=== PATIENT | male | born 1940 | race Hispanic/Latino ===

== ENCOUNTER 2020-01-31 18:15 | Emergency (ER) | payer MEDICARE ==
--- NOTE | 2020-01-31 19:22 | Event Note ---
ED Screening Note Date of service: 01/31/20 Time: 19:19 ED Screening Note: [id number] male presents today complaining of left hip pain status post falling today. pain with lifting left leg This initial assessment/diagnostic orders/clinical plan/treatment(s) is/are subject to change based on patients health status, clinical progression and re- assessment by fellow clinical providers in the ED. Further treatment and workup at subsequent clinical providers discretion. Patient/guardian urged not to elope from the ED as their condition may be serious if not clinically assessed and managed. Initial orders include: lt hip xr
--- NOTE | 2020-01-31 20:23 | XRay Report ---
Left hip-2 views INDICATION: pain s/p fall. COMPARISON: None. IMPRESSION: No acute osseous or soft tissue abnormality. 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 Signer Name: Radhames Ramires MD Signed: 01/31/2020 8:19 PM Workstation Name: [id number]
--- NOTE | 2020-01-31 21:46 | Emergency Department Report ---
ED Lower Extremity HPI - General Chief Complaint: Extremity Injury, Lower Stated Complaint: FELL/HIT HIP Time Seen by Provider: 01/31/20 21:43 Source: patient, family Mode of arrival: Ambulatory Limitations: No Limitations - History of Present Illness Initial Comments: Patient is a 80-year-old male that presents emergency room with complaints of fall and left hip pain. Patient states he slipped walking down the hallway today. Patient states he not been able to ambulate since. Patient states the pain is 10 out of 10. Pain states the pain is worse with movement and palpation and trying to walk. Patient states the pain is better with rest. Patient states the pain is a sharp pain. Patient states the pain is nonradiating. Patient denies chest pain. Patient denies shortness of breath. Patient denies loss of conscious. Patient denies other injuries. Patient denies any other pain. Patient denies hitting his head. Patient denies recent travel. Patient denies recent international travel. Patient denies exposure to the novel coronavirus. Patient denies sick contacts. Patient denies fever and chills. Patient denies cough. Patient denies diarrhea. Patient denies coming in contact with anybody with symptoms of the novel coronavirus. Complaint: hip injury -: Sudden Injury: Hip: Left, Pelvis: Left Type of Injury: blunt Place: home Severity: severe Severity scale (0 -10): 10 Improves With: rest Worsens With: weight bearing, movement, palpation Context: fall, direct blow Associated Symptoms: snap/pop sensation, unable to bear weight - Related Data Previous Rx's Medication Instructions Recorded Last Taken Type Acetaminophen/Codeine [Tylenol 1 tab PO Q4HR PRN #12 tablet 02/01/20 Unknown Rx /Codeine # 3 tab] Allergies Allergy/AdvReac Type Severity Reaction Status Date / Time No Known Allergies Allergy Unverified 01/31/20 18:22 ED Review of Systems ROS: Stated complaint: FELL/HIT HIP Other details as noted in HPI Constitutional: denies: chills, fever Eyes: denies: eye pain, eye discharge, vision change ENT: denies: ear pain, throat pain Respiratory: denies: cough, shortness of breath, wheezing Cardiovascular: denies: chest pain, palpitations Endocrine: no symptoms reported Gastrointestinal: denies: abdominal pain, nausea, diarrhea Genitourinary: denies: urgency, dysuria Musculoskeletal: denies: back pain, joint swelling, arthralgia Skin: denies: rash, lesions Neurological: denies: headache, weakness, paresthesias Psychiatric: denies: anxiety, depression Hematological/Lymphatic: denies: easy bleeding, easy bruising ED Past Medical Hx - Past Medical History Previous Medical History?: No - Surgical History Past Surgical History?: No - Family History Family history: no significant - Social History Smoking Status: Never Smoker Substance Use Type: None - Medications Home Medications: Home Medications Medication Instructions Recorded Confirmed Last Taken Type Acetaminophen/Codeine [Tylenol 1 tab PO Q4HR PRN #12 tablet 02/01/20 Unknown Rx /Codeine # 3 tab] ED Physical Exam - General Limitations: No Limitations General appearance: alert, in no apparent distress - Head Head exam: Present: atraumatic, normocephalic - Eye Eye exam: Present: normal appearance - ENT ENT exam: Present: mucous membranes moist - Neck Neck exam: Present: normal inspection - Respiratory Respiratory exam: Present: normal lung sounds bilaterally. Absent: respiratory distress - Cardiovascular Cardiovascular Exam: Present: regular rate, normal rhythm. Absent: systolic murmur, diastolic murmur, rubs, gallop - GI/Abdominal GI/Abdominal exam: Present: soft, normal bowel sounds - Rectal Rectal exam: Present: deferred - Extremities Exam Extremities exam: Present: normal inspection, full ROM (Except for with left lower extremity), tenderness (To left hip and pelvis) - Back Exam Back exam: Present: normal inspection - Neurological Exam Neurological exam: Present: alert, oriented X3 - Psychiatric Psychiatric exam: Present: normal affect, normal mood - Skin Skin exam: Present: warm, dry, intact, normal color. Absent: rash ED Course Vital Signs 01/31/20 01/31/20 01/31/20 18:22 21:41 21:45 Temperature 97.5 F L 97.9 F Pulse Rate 86 86 Respiratory 18 16 18 Rate Blood Pressure 147/87 Blood Pressure 141/97 [Right] O2 Sat by Pulse 96 99 99 Oximetry 02/01/20 01:30 Temperature Pulse Rate 76 Respiratory 17 Rate Blood Pressure Blood Pressure 168/91 [Right] O2 Sat by Pulse 98 Oximetry - Reevaluation(s) Reevaluation #1: I discussed all results and clinical findings with patient. I discussed plan of care with patient. Patient agrees with plan of care. Patient is stable for discharge. Patient will be discharged home. Patient given discharge instructions. Patient voiced understanding of discharge instructions. Son at bedside during entire discussion. 02/01/20 01:28 ED Lower Extremity MDM - Lab Data Result diagrams: 01/31/20 21:56 01/31/20 21:56 - Radiology Data Radiology results: report reviewed, image reviewed interpreted by me: No acute findings on left hip x-ray. CT PELVIS WITHOUT CONTRAST INDICATION / CLINICAL INFORMATION: Pt complains of pelvic and hip pain. Post-fall. TECHNIQUE: Axial CT images were obtained through the pelvis without contrast. All CT scans at this location are performed using CT dose reduction for ALARA by means of automated exposure control. COMPARISON: None available. FINDINGS: BONES: No fracture. 1 cm lytic lesion right iliac crest axial image 13 HIP JOINTS: No significant abnormality. SACROILIAC JOINTS: No significant abnormality. SOFT TISSUES: No significant abnormality. 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 ADDITIONAL FINDINGS: Moderate vascular calcifications throughout both iliac arteries. IMPRESSION: 1. No pelvic fracture 2. 1 cm lytic lesion right iliac bone. Please correlate clinically for possible myeloma. 3. Moderate degenerative changes lumbar spine. - Medical Decision Making Patient is a 80-year-old male that presents emergency room status post fall. Patient complains of left hip pain. Patient complaining of severe pain. Patient had an x-ray done which shows no acute findings. Patient then had a CT scan to confirm that there is no pelvic fracture or hip fracture. Patient CT was negative for acute findings. Patient CT was positive for a lytic lesion of the pelvis. Patient sent to see a faro dealer as an outpatient. Patient's labs were unremarkable. Patient's stable for discharge. Patient discharged home with a pain medication. Patient's discharge instructions given to the patient and the patient's son. - Differential Diagnosis Fall, hip pain, pelvic pain, contusion, sprain, strain, fracture Critical care attestation.: If time is entered above; I have spent that time in minutes in the direct care of this critically ill patient, excluding procedure time. ED Disposition Clinical Impression: Bony pelvic pain, Hip pain, left, Lesion of pelvic bone Fall Qualifiers: Encounter type: initial encounter Qualified Code(s): W19.XXXA - Unspecified fall, initial encounter Contusion, hip Qualifiers: Encounter type: initial encounter Laterality: left Qualified Code(s): S70.02XA - Contusion of left hip, initial encounter Disposition: TO HOME OR SELFCARE Is pt being admited?: No Does the pt Need Aspirin: No Condition: Stable Instructions: Fall Prevention for Older Adults (ED), Contusion in Adults (ED), Hip Sprain (ED), Fall Prevention (ED) Additional Instructions: Patient to follow-up with primary care in 2 to 3 days. Patient to follow-up with orthopedist in 2 to 3 days. Patient to follow-up with faro dealer in 2 to 3 days. Patient to rest. Patient to increase water. Patient to take Tylenol or ibuprofen as needed for pain. Patient to take meds as directed. Patient to return to the ER if condition worsens, changes or new symptoms arise. Prescriptions: Acetaminophen/Codeine [Tylenol /Codeine # 3 tab] 1 tab PO Q4HR PRN #12 tablet PRN Reason: Pain Referrals: PRIMARY MD KAI [Primary Care Provider] - 2-3 Days VALERIANO LOBO MD [Staff Physician] - 2-3 Days FUENTES KILPATRICK MD [Staff Physician] - 2-3 Days Time of Disposition: 01:28
[2020-01-31 22:28] LABS: Mean Corpuscular HGB Conc 36 % (32-34); Mean Corpuscular Volume 89 fl (84-94); Platelet Count 158 K/mm3 (140-440); Red Blood Count 4.36 M/mm3 (3.65-5.03); Red Cell Distribution Width 13.8 % (13.2-15.2)
[2020-01-31 22:30] LABS: Hematocrit 38.6 % (35.5-45.6)
[2020-01-31 22:42] LABS: BUN/Creatinine Ratio 17; Blood Urea Nitrogen 12 mg/dL (9-20); Calcium 8.8 mg/dL (8.4-10.2); Hemolysis Index 22
--- NOTE | 2020-02-01 01:11 | Cat Scan Report ---
CT PELVIS WITHOUT CONTRAST INDICATION / CLINICAL INFORMATION: Pt complains of pelvic and hip pain. Post-fall. TECHNIQUE: Axial CT images were obtained through the pelvis without contrast. All CT scans at this location are performed using CT dose reduction for ALARA by means of automated exposure control. COMPARISON: None available. FINDINGS: BONES: No fracture. 1 cm lytic lesion right iliac crest axial image 13 HIP JOINTS: No significant abnormality. SACROILIAC JOINTS: No significant abnormality. SOFT TISSUES: No significant abnormality. 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 ADDITIONAL FINDINGS: Moderate vascular calcifications throughout both iliac arteries. IMPRESSION: 1. No pelvic fracture 2. 1 cm lytic lesion right iliac bone. Please correlate clinically for possible myeloma. 3. Moderate degenerative changes lumbar spine. Signer Name: Isaias Stroud MD Signed: 02/01/2020 1:06 AM Workstation Name: [id number]
[2020-02-01 01:31] VITALS: BP 168/91
== END 2020-02-01 02:00 | disposition home or self-care (01) ==
LOC: ED 18:15
DX: S70.02XA Contusion of left hip, initial encounter (principal); M89.8X8 Other specified disorders of bone, other site; W19.XXXA Unspecified fall, initial encounter; Y93.89 Activity, other specified; Y92.89 Other specified places as the place of occurrence of the external cause; Y99.8 Other external cause status
CPT/HCPCS: 36415; 72192; 80048; 85027

== ENCOUNTER 2020-02-11 09:34 | Emergency (ER) | payer MEDICARE ==
[2020-02-11 09:49] VITALS: BP 130/88
--- NOTE | 2020-02-11 10:49 | Emergency Department Report ---
Chief Complaint: Extremity Injury, Lower Stated Complaint: HIP PAIN Time Seen by Provider: 02/11/20 10:35 - HPI History of Present Illness: 80-year-old male patient presents with complaints of continued left hip pain and stiffness. Patient was seen here 01/31/2020 with the same complaint of hip pain that occurred after a fall. Patient states since he has also been seen at [facility] emergency department. Patient had x-rays and CT scans of the hip both here and at [place]. CT scan here showed a lytic lesion that may resemble myeloma. Patient states pain medications including hydrocodone, Tylenol 3, and Flexeril are not helping with his pain. He reports his pain seems to be worse in the morning and gets better throughout the day. I spoke with patient's son Jadon, who states patient has full mobility of the left hip and normally ambulates with a walker. He denies any loss of bladder/bowel control, back injuries, or numbness/tingling/weakness in his limbs. Patient states he is here because his pain is uncontrolled. - Exam Vital Signs: Vital Signs 02/11/20 09:44 Temperature 97.6 F Pulse Rate 89 Respiratory 16 Rate Blood Pressure 130/88 O2 Sat by Pulse 98 Oximetry MSE screening note: Focused history and physical exam performed. Due to findings the following was ordered: ED Medical Decision Making - Medical Decision Making Please see HPI. Spoke with patient's son Jadon and patient about the importance of following up with a handle turner oncologist for further evaluation and tr eatment of the lytic lesion noted on the CT scan. Strict return precautions were discussed in detail with patient who verbalized understanding. Prescription for meloxicam given. ED Disposition for MSE Clinical Impression: Left hip pain, Abnormal CT scan, pelvis Disposition: [id number] MED SCREENING EXAM-LEFT Is pt being admited?: No Condition: Stable ED Review of Systems ROS: Stated complaint: HIP PAIN Other details as noted in HPI Constitutional: denies: diaphoresis, fever, weakness Respiratory: denies: cough, shortness of breath Cardiovascular: denies: chest pain Gastrointestinal: denies: abdominal pain, nausea, vomiting, hematochezia Genitourinary: denies: frequency Musculoskeletal: arthralgia. denies: joint swelling Skin: denies: rash, lesions Neurological: denies: headache, numbness, paresthesias, abnormal gait ED Physical Exam - General Limitations: No Limitations General appearance: alert, in no apparent distress - Head Head exam: Present: atraumatic, normocephalic - Neck Neck exam: Present: normal inspection, full ROM - Respiratory Respiratory exam: Absent: normal lung sounds bilaterally, respiratory distress - Cardiovascular Cardiovascular Exam: Present: regular rate, normal rhythm. Absent: systolic murmur, diastolic murmur, rubs, gallop - GI/Abdominal GI/Abdominal exam: Present: soft. Absent: distended (Left hip flexion is mildly limited secondary to pain, there is full range of motion of the right hip, there is normal sensation bilaterally in legs and normal strength. No lower back pain or tenderness noted on exam) - Neurological Exam Neurological exam: Present: alert, oriented X3 - Psychiatric Psychiatric exam: Present: normal affect, normal mood - Skin Skin exam: Present: warm, dry, intact, normal color. Absent: rash, cyanosis, erythema
== END 2020-02-11 11:17 | disposition left against medical advice (07) ==
LOC: ED 09:34
DX: M25.552 Pain in left hip (principal); Z53.21 Procedure and treatment not carried out due to patient leaving prior to being seen by health care provider

== ENCOUNTER 2020-02-13 16:44 | Emergency (ER) | payer MEDICARE ==
--- NOTE | 2020-02-13 17:23 | Emergency Department Report ---
ED General Adult HPI - General Chief complaint: Fall Stated complaint: LT HIP PAIN PUI?: No Time Seen by Provider: 02/13/20 16:46 Source: EMS Mode of arrival: Stretcher Limitations: No Limitations - History of Present Illness Initial comments: Patient is a 80-year-old male that presents emergency room with complaints of hip pain. Patient states he fell on January 31, 2020. Patient was seen the day of the fall. Patient's initial visit to the ER patient had a pelvis CT done which was negative for acute findings. Patient also came back on 02/11/2020 to be seen again and had a x-ray done of the hip and pelvis and it was negative for acute fracture. Patient has not seen the orthopedist or his primary care since his visits to the emergency room. Patient states that he needs a refill of the medication that was given to him on 01/31/2020. Patient was prescribed Tylenol 3 and patient states that he was given meloxicam at his second visit and it did not help. Patient would like a refill of the Tylenol 3. Patient states the pain is a 10 out of 10. Patient states that the pain is worse with movement and better with rest. Patient denies another fall. Patient denies new injury. Patient has not seen any other specialist or his primary care after his initial ER visits. Patient denies chest pain or shortness of breath. Patient denies any other complaints. Patient denies recent travel. Patient denies recent international travel. Patient denies exposure to the novel coronavirus. Patient denies sick contacts. Patient denies fever and chills. Patient denies cough. Patient denies diarrhea. Patient denies coming in contact with anybody with symptoms of the novel coronavirus. I discussed the patient's situation with the patient's son over the phone. The son states that the patient does not want to go to any follow-up with me she just wants to keep coming back to the emergency room because it is easier on him. -: Sudden Location: left, lower extremity Severity scale (0 -10): 10 Consistency: constant - Related Data Previous Rx's Medication Instructions Recorded Last Taken Type Meloxicam [Mobic] 15 mg PO 15 PRN #15 tablet 02/11/20 Unknown Rx Acetaminophen/Codeine [Tylenol 1 tab PO Q4HR PRN #10 tablet 02/13/20 Unknown Rx /Codeine # 3 tab] Allergies Allergy/AdvReac Type Severity Reaction Status Date / Time No Known Allergies Allergy Unverified 01/31/20 18:22 ED Review of Systems ROS: Stated complaint: LT HIP PAIN Other details as noted in HPI Constitutional: denies: chills, fever Eyes: denies: eye pain, eye discharge, vision change ENT: denies: ear pain, throat pain Respiratory: denies: cough, shortness of breath, wheezing Cardiovascular: denies: chest pain, palpitations Endocrine: no symptoms reported Gastrointestinal: denies: abdominal pain, nausea, diarrhea Genitourinary: denies: urgency, dysuria Musculoskeletal: denies: back pain, joint swelling, arthralgia Skin: denies: rash, lesions Neurological: denies: headache, weakness, paresthesias Psychiatric: depression. denies: anxiety, auditory hallucinations, visual hallucinations, homicidal thoughts, suicidal thoughts Hematological/Lymphatic: denies: easy bleeding, easy bruising ED Past Medical Hx - Past Medical History Previous Medical History?: Yes Hx Hypertension: Yes - Surgical History Past Surgical History?: No - Family History Family history: no significant - Social History Smoking Status: Never Smoker Substance Use Type: None - Medications Home Medications: Home Medications Medication Instructions Recorded Confirmed Last Taken Type Meloxicam [Mobic] 15 mg PO 15 PRN #15 tablet 02/11/20 Unknown Rx Acetaminophen/Codeine [Tylenol 1 tab PO Q4HR PRN #10 tablet 02/13/20 Unknown Rx /Codeine # 3 tab] ED Physical Exam - General Limitations: No Limitations General appearance: alert, in no apparent distress - Head Head exam: Present: atraumatic, normocephalic - Eye Eye exam: Present: normal appearance - ENT ENT exam: Present: mucous membranes moist - Neck Neck exam: Present: normal inspection - Respiratory Respiratory exam: Present: normal lung sounds bilaterally. Absent: respiratory distress - Cardiovascular Cardiovascular Exam: Present: regular rate, normal rhythm. Absent: systolic murmur, diastolic murmur, rubs, gallop - GI/Abdominal GI/Abdominal exam: Present: soft, normal bowel sounds - Rectal Rectal exam: Present: deferred - Extremities Exam Extremities exam: Present: normal inspection, full ROM (Except for with left hip.), tenderness (Tenderness over the left hip.) - Back Exam Back exam: Present: normal inspection - Neurological Exam Neurological exam: Present: alert, oriented X3 - Psychiatric Psychiatric exam: Present: normal affect, normal mood - Skin Skin exam: Present: warm, dry, intact, normal color. Absent: rash ED Course Vital Signs 02/13/20 17:40 Temperature 98 F Pulse Rate 87 Respiratory 16 Rate Blood Pressure 176/100 [Left] O2 Sat by Pulse 100 Oximetry - Reevaluation(s) Reevaluation #1: Initial evaluation done. I spoke with the son about the plan of care. Patient does not require any further emergency medical services at this time. Son agrees with plan of care. I discussed all clinical findings with patient. I discussed plan of care with patient. Patient agrees with plan of care. Patient is stable for discharge. Patient will be discharged home. Patient given discharge instructions. Patient voiced understanding of discharge instructions. 02/13/20 17:35 ED Medical Decision Making - Medical Decision Making Patient is a 80-year-old male that presents emergency room with complaints of left hip pain after a fall 2 weeks ago. Patient has been evaluated twice in the ER and has been discharged both times. Patient really turned to the ER for a refill of his Tylenol 3. Patient has not followed up with any of the specialist or his primary care since his 2 ER visits here. I discussed the situation and the plan of care with the patient's son and the patient's son agrees with discharge. Patient encouraged to follow-up with the specialist for further evaluation and treatment of his hip pain. Patient will be given a refill of the Tylenol 3 until the patient can see the orthopedist within the next 2-3 days. Patient does not require any further emergency medical service. Patient had a medical clearing exam and is cleared for discharge and to follow-up as an outpatient. - Differential Diagnosis Hip contusion. Fall Critical care attestation.: If time is entered above; I have spent that time in minutes in the direct care of this critically ill patient, excluding procedure time. ED Disposition Clinical Impression: Bony pelvic pain, Hip pain, left Contusion, hip Qualifiers: Encounter type: initial encounter Laterality: left Qualified Code(s): S70.02XA - Contusion of left hip, initial encounter Disposition: MED SCREENING EXAM-LEFT Is pt being admited?: No Does the pt Need Aspirin: No Condition: Stable Instructions: Arthralgia (ED) Additional Instructions: Patient to follow-up with primary care in 2 to 3 days. Patient to follow-up with orthopedist in 2 to 3 days. Patient to rest. Patient to increase water. Patient to avoid strenuous exercise or heavy lifting until cleared by orthopedist. Patient to take Tylenol or ibuprofen as needed for pain. Patient to take meds as directed. Patient to return to the ER if condition worsens, changes or new symptoms arise. Prescriptions: Acetaminophen/Codeine [Tylenol /Codeine # 3 tab] 1 tab PO Q4HR PRN #10 tablet PRN Reason: Pain Referrals: PRIMARY CARE, [Primary Care Provider] - 2-3 Days MALACHI DUENAS MD [Staff Physician] - 2-3 Days Time of Disposition: 17:37
[2020-02-13 17:41] VITALS: BP 176/100
== END 2020-02-13 19:16 | disposition left against medical advice (07) ==
LOC: ED 16:44
DX: M25.552 Pain in left hip (principal); R10.2 Pelvic and perineal pain; Z79.899 Other long term (current) drug therapy; Z53.21 Procedure and treatment not carried out due to patient leaving prior to being seen by health care provider; W19.XXXA Unspecified fall, initial encounter; Y93.89 Activity, other specified; Y92.89 Other specified places as the place of occurrence of the external cause; Y99.8 Other external cause status

== ENCOUNTER 2020-02-18 10:21 | Emergency (ER) | payer MEDICARE ==
[2020-02-18 11:00] VITALS: BP 121/82
--- NOTE | 2020-02-18 11:26 | Event Note ---
ED Screening Note ED Screening Note: hematuria for 2-3 days no dysuria no abd pain no n/v/d hip pain that has been ongoing and evaluated sons states he has been having SI pt denies any SI/HI This initial assessment/diagnostic orders/clinical plan/treatment(s) is/are subject to change based on patients health status, clinical progression and re- assessment by fellow clinical providers in the ED. Further treatment and workup at subsequent clinical providers discretion. Patient/guardian urged not to elope from the ED as their condition may be serious if not clinically assessed and managed. Initial orders include: MAIN eval labs, urine
[2020-02-18 13:43] LABS: Basophils # (Auto) 0.1 K/mm3 (0.0-0.1); Basophils % (Auto) 0.7 % (0.0-1.8); Eosinophils % (Auto) 0.1 % (0.0-4.3); Hematocrit 41.3 % (35.5-45.6); Hemoglobin 14.3 gm/dl (11.8-15.2); Lymphocytes # (Auto) 0.9 K/mm3 (1.2-5.4); Lymphocytes % (Auto) 7.6 % (13.4-35.0); Mean Corpuscular HGB Conc 35 % (32-34); Mean Corpuscular Volume 87 fl (84-94); Monocytes # (Auto) 0.8 K/mm3 (0.0-0.8); Monocytes % (Auto) 6.8 % (0.0-7.3); Platelet Count 270 K/mm3 (140-440); Red Blood Count 4.77 M/mm3 (3.65-5.03); Red Cell Distribution Width 13.6 % (13.2-15.2)
[2020-02-18 14:00] LABS: Alanine Aminotransferase 16 units/L (7-56); BUN/Creatinine Ratio 24; Blood Urea Nitrogen 17 mg/dL (9-20); Calcium 9.2 mg/dL (8.4-10.2); Hemolysis Index 11
--- NOTE | 2020-02-18 15:22 | Emergency Department Report ---
ED General Adult HPI - General Chief complaint: Psych Stated complaint: blood in urine/threatening suicide/leg pain Time Seen by Provider: 02/18/20 11:21 Source: patient, family Mode of arrival: Wheelchair Limitations: Other - History of Present Illness Initial comments: Patient presents to the emergency department via EMS with a chief complaint of depression. 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 The patient states that today he had an argument with his son which she described was pretty aggressive and he told his son he wanted to kill himself as well as kill his son. Patient states he said it just because he was upset. Patient complains of left leg pain that has been chronic since 1980 when he had rods placed. Patient also complains of some blood in his urine and flank pain. -: Sudden Severity scale (0 -10): 0 Consistency: constant Improves with: none Worsens with: none Associated Symptoms: denies other symptoms Treatments Prior to Arrival: none - Related Data Previous Rx's Medication Instructions Recorded Last Taken Type Meloxicam [Mobic] 15 mg PO 15 PRN #15 tablet 02/11/20 Unknown Rx Acetaminophen/Codeine [Tylenol 1 tab PO Q4HR PRN #10 tablet 02/13/20 Unknown Rx /Codeine # 3 tab] cephALEXin [Keflex] 500 mg PO Q12HR #14 cap 02/18/20 Unknown Rx Allergies Allergy/AdvReac Type Severity Reaction Status Date / Time No Known Allergies Allergy Verified 02/18/20 10:53 ED Review of Systems ROS: Stated complaint: blood in urine/threatening suicide/leg pain Other details as noted in HPI Constitutional: denies: chills, fever Eyes: denies: eye pain, eye discharge, vision change ENT: denies: ear pain, throat pain Respiratory: denies: cough, shortness of breath, wheezing Cardiovascular: denies: chest pain, palpitations Endocrine: no symptoms reported Gastrointestinal: denies: abdominal pain, nausea, diarrhea Genitourinary: denies: urgency, dysuria Musculoskeletal: denies: back pain, joint swelling, arthralgia Skin: denies: rash, lesions Neurological: denies: headache, weakness, paresthesias Psychiatric: homicidal thoughts, suicidal thoughts. denies: anxiety, depression, auditory hallucinations, visual hallucinations Hematological/Lymphatic: denies: easy bleeding, easy bruising ED Past Medical Hx - Past Medical History Hx Hypertension: Yes Additional medical history: poor historian - Social History Smoking Status: Never Smoker Substance Use Type: None - Medications Home Medications: Home Medications Medication Instructions Recorded Confirmed Last Taken Type Meloxicam [Mobic] 15 mg PO 15 PRN #15 tablet 02/11/20 Unknown Rx Acetaminophen/Codeine [Tylenol 1 tab PO Q4HR PRN #10 tablet 02/13/20 Unknown Rx /Codeine # 3 tab] cephALEXin [Keflex] 500 mg PO Q12HR #14 cap 02/18/20 Unknown Rx ED Physical Exam - General Limitations: Other General appearance: alert, in no apparent distress - Head Head exam: Present: atraumatic, normocephalic - Eye Eye exam: Present: normal appearance, PERRL, EOMI - ENT ENT exam: Present: mucous membranes moist - Neck Neck exam: Present: normal inspection - Respiratory Respiratory exam: Present: normal lung sounds bilaterally. Absent: respiratory distress - Cardiovascular Cardiovascular Exam: Present: regular rate, normal rhythm. Absent: systolic murmur, diastolic murmur, rubs, gallop - GI/Abdominal GI/Abdominal exam: Present: soft, normal bowel sounds. Absent: distended, tenderness - Rectal Rectal exam: Present: deferred - Extremities Exam Extremities exam: Present: normal inspection - Back Exam Back exam: Present: normal inspection - Neurological Exam Neurological exam: Present: alert, oriented X3, CN II-XII intact. Absent: motor sensory deficit - Psychiatric Psychiatric exam: Present: normal affect, normal mood - Skin Skin exam: Present: warm, dry, intact, normal color. Absent: rash ED Course Vital Signs 02/18/20 02/18/20 10:59 18:36 Temperature 98.2 F Pulse Rate 80 Respiratory 20 18 Rate Blood Pressure 121/82 O2 Sat by Pulse 97 100 Oximetry ED Medical Decision Making - Lab Data Result diagrams: 02/18/20 13:18 02/18/20 13:18 Lab Results 02/18/20 02/18/20 02/18/20 Range/Units 13:18 13:18 13:18 WBC 11.4 H (4.5-11.0) K/mm3 RBC 4.77 (3.65-5.03) M/mm3 Hgb 14.3 (11.8-15.2) gm/dl Hct 41.3 (35.5-45.6) % MCV 87 (84-94) fl MCH 30 (28-32) pg MCHC 35 H (32-34) % RDW 13.6 (13.2-15.2) % Plt Count 270 (140-440) K/mm3 Lymph % (Auto) 7.6 L (13.4-35.0) % [place] % (Auto) 6.8 (0.0-7.3) % Eos % (Auto) 0.1 (0.0-4.3) % Baso % (Auto) 0.7 (0.0-1.8) % Lymph # 0.9 L (1.2-5.4) K/mm3 [place] # 0.8 (0.0-0.8) K/mm3 Eos # 0.0 (0.0-0.4) K/mm3 Baso # 0.1 (0.0-0.1) K/mm3 Seg Neutrophils % 84.8 H (40.0-70.0) % Seg Neutrophils # 9.7 H (1.8-7.7) K/mm3 Sodium 142 (137-145) mmol/L Potassium 3.3 L (3.6-5.0) mmol/L Chloride 99.9 (98-107) mmol/L Carbon Dioxide 26 (22-30) mmol/L Anion Gap 19 mmol/L BUN 17 (9-20) mg/dL Creatinine 0.7 L (0.8-1.5) mg/dL Estimated GFR > 60 ml/min BUN/Creatinine Ratio 24 % Glucose 176 H (75-100) mg/dL Calcium 9.2 (8.4-10.2) mg/dL Total Bilirubin 1.90 H (0.1-1.2) mg/dL AST 35 (5-40) units/L ALT 16 (7-56) units/L Alkaline Phosphatase 85 (35-129) units/L Total Protein 6.5 (6.3-8.2) g/dL Albumin 4.0 (3.9-5) g/dL Albumin/Globulin Ratio 1.6 % Salicylates < 0.3 L (2.8-20.0) mg/dL Acetaminophen (10.0-30.0) ug/mL Plasma/Serum Alcohol (0-0.07) % 02/18/20 02/18/20 Range/Units 13:18 13:18 WBC (4.5-11.0) K/mm3 RBC (3.65-5.03) M/mm3 Hgb (11.8-15.2) gm/dl Hct (35.5-45.6) % MCV (84-94) fl MCH (28-32) pg MCHC (32-34) % RDW (13.2-15.2) % Plt Count (140-440) K/mm3 Lymph % (Auto) (13.4-35.0) % [place] % (Auto) (0.0-7.3) % Eos % (Auto) (0.0-4.3) % Baso % (Auto) (0.0-1.8) % Lymph # (1.2-5.4) K/mm3 [place] # (0.0-0.8) K/mm3 Eos # (0.0-0.4) K/mm3 Baso # (0.0-0.1) K/mm3 Seg Neutrophils % (40.0-70.0) % Seg Neutrophils # (1.8-7.7) K/mm3 Sodium (137-145) mmol/L Potassium (3.6-5.0) mmol/L Chloride (98-107) mmol/L Carbon Dioxide (22-30) mmol/L Anion Gap mmol/L BUN (9-20) mg/dL Creatinine (0.8-1.5) mg/dL Estimated GFR ml/min BUN/Creatinine Ratio % Glucose (75-100) mg/dL Calcium (8.4-10.2) mg/dL Total Bilirubin (0.1-1.2) mg/dL AST (5-40) units/L ALT (7-56) units/L Alkaline Phosphatase (35-129) units/L Total Protein (6.3-8.2) g/dL Albumin (3.9-5) g/dL Albumin/Globulin Ratio % Salicylates (2.8-20.0) mg/dL Acetaminophen < 5.0 L (10.0-30.0) ug/mL Plasma/Serum Alcohol < 0.01 (0-0.07) % - Medical Decision Making The patient declined CT of the abdomen multiple times stating he did not need it Patient evaluated by the mental health and deemed not a harm to self or others. Critical care attestation.: If time is entered above; I have spent that time in minutes in the direct care of this critically ill patient, excluding procedure time. ED Disposition Clinical Impression: Hematuria Disposition: DC-01 TO HOME OR SELFCARE Is pt being admited?: No Does the pt Need Aspirin: No Condition: Stable Instructions: Acute Hematuria (ED) Additional Instructions: RETURN IF WORSE Prescriptions: cephALEXin [Keflex] 500 mg PO Q12HR #14 cap Referrals: PRIMARY CAREMD [Primary Care Provider] - 3-5 Days ADRIA ESTRADA MD [Staff Physician] - 3-5 Days [facility] [Provider Group] - 3-5 Days [facility] [Provider Group] - 3-5 Days [facility] [Outside] - 3-5 Days Time of Disposition: 19:08
[2020-02-18] MEDS ORDERED: MORPHINE 4 MG/1 ML INJ IM ONE (19:27)
[2020-02-18] MEDS ORDERED: ONDANSETRON 4 MG/2 ML INJ IM ONE (19:27)
[2020-02-18 19:28] LABS: Amphetamine Screen,Urine PRESUMPTIVE NEGATIVE; Benzodiazepines Screen,Urine PRESUMPTIVE NEGATIVE; Cannabinoid Screen,Urine PRESUMPTIVE NEGATIVE; Cocaine Screen,Urine PRESUMPTIVE NEGATIVE; Methadone Screen,Urine PRESUMPTIVE NEGATIVE; Opiate Screen,Urine PRESUMPTIVE POSITIVE
[2020-02-18] MEDS ORDERED: MORPHINE 2 MG/1 ML INJ ONE (19:28)
[2020-02-18 19:38] LABS: Bilirubin,Urine NEG (Negative); Blood,Urine LG (Negative); Color,Urine Amber (Yellow); Mucus,Urine 1+ /HPF
[2020-02-18 19:40] LABS: RBC,Urine > 182.0 /HPF (0.0-6.0)
== END 2020-02-18 20:02 | disposition home or self-care (01) ==
LOC: ED 10:21
DX: R31.9 Hematuria, unspecified (principal); R10.9 Unspecified abdominal pain; F32.9 Major depressive disorder, single episode, unspecified; I10 Essential (primary) hypertension; Z79.899 Other long term (current) drug therapy
CPT/HCPCS: 36415; 80053; 80307; 81001; 85025; 96372; 99284; J2270; 80320; G0480

== ENCOUNTER 2020-02-20 09:38 | Inpatient (IN) | payer MEDICARE ==
[2020-02-20] MEDS ORDERED: ZIPRASIDONE MESYLATE 20 MG VIAL IM PRN (09:57)
--- NOTE | 2020-02-20 13:29 | Consultation ---
History of Present Illness - Reason for Consult Consult date: 02/20/20 HTN Requesting physician: JOSE CURRAN - History of Present Illness 80 YO Male with HTN, Debility, Dementia admitted to [facility] for Psychiatric stabilization. Consult placed by Dr. Curran for medical management. Patient seen and evaluated in his room. Patient appears comfortable. Patient has cognitive slowing. Patient is bedbound. No reported nursing events. Past History Past Medical History: hypertension Past Surgical History: No surgical history, Other (Reviewed) Social history: . denies: smoking, alcohol abuse Family history: hypertension Medications and Allergies Allergies Allergy/AdvReac Type Severity Reaction Status Date / Time No Known Allergies Allergy Verified 02/18/20 10:53 Home Medications Medication Instructions Recorded Confirmed Last Taken Type cephALEXin [Keflex] 500 mg PO Q12HR #14 cap 02/18/20 02/20/20 Unknown Rx Potassium Chloride 20 meq PO BID #30 packet 02/20/20 02/20/20 Unknown Rx Active Meds: Active Medications Melatonin (Melatonin) 5 mg PO QHS PRN PRN Reason: Sleep Trazodone HCl (Desyrel) 50 mg PO QHS CONSTANCE Ziprasidone (Geodon) 10 mg IM Q6H PRN PRN Reason: Agitation Review of Systems Constitutional: no weight loss, no weight gain, no fever Ears, nose, mouth and throat: no ear pain, no tinnitis, no decreased hearing Cardiovascular: no chest pain, no rapid/irregular heart beat Respiratory: no cough, no excessive sputum, no hemoptysis Gastrointestinal: no nausea, no diarrhea, no change in bowel habits Genitourinary Male: no hematuria, no discharge, no urinary frequency Rectal: no incontinence, no bleeding Musculoskeletal: no neck stiffness Integumentary: no pruritis, no jaundice Neurological: no tingling, no lack of coordination Psychiatric: suicidal ideation, no change in sleep habits, no hypersomnia, no change in libido, no disorientation Hematologic/Lymphatic: no easy bruising, no easy bleeding, no lymphedema Allergic/Immunologic: no wheezing, no persistent infections Exam - Constitutional General appearance: Present: no acute distress - EENT Eyes: Present: PERRL ENT: hearing intact, clear oral mucosa - Neck Neck: Present: supple, normal ROM - Respiratory Respiratory effort: normal Respiratory: bilateral: CTA - Cardiovascular Heart Sounds: Present: S1 & S2. Absent: rub, click - Extremities Extremities: pulses symmetrical, No edema Peripheral Pulses: within normal limits - Abdominal General gastrointestinal: Present: soft, non-tender, non-distended, normal bowel sounds Male genitourinary: Present: normal - Integumentary Integumentary: Present: clear, warm, dry - Musculoskeletal Musculoskeletal: generalized weakness - Psychiatric Psychiatric: cooperative - Neurologic Neurologic: CNII-XII intact, moves all extremities, no gait normal (Extremity: With) Assessment and Plan - Patient Problems (1) HTN (hypertension) Current Visit: Yes Status: Acute Qualifiers: Hypertension type: essential hypertension Qualified Code(s): I10 - Essential (primary) hypertension Plan to address problem: Continue medical management, monitor blood pressure every shift
[2020-02-20] MEDS: traZODone 50 MG TAB PO SCH (21:40)
[2020-02-21 09:56] LABS: Basophils % (Auto) 0.6 % (0.0-1.8); Eosinophils % (Auto) 0.4 % (0.0-4.3); Hematocrit 38.1 % (35.5-45.6); Hemoglobin 13.9 gm/dl (11.8-15.2); Lymphocytes # (Auto) 1.3 K/mm3 (1.2-5.4); Lymphocytes % (Auto) 18.8 % (13.4-35.0); Mean Corpuscular HGB Conc 37 % (32-34); Mean Corpuscular Volume 87 fl (84-94); Monocytes # (Auto) 0.5 K/mm3 (0.0-0.8); Monocytes % (Auto) 7.1 % (0.0-7.3); Platelet Count 239 K/mm3 (140-440); Red Cell Distribution Width 13.9 % (13.2-15.2)
--- NOTE | 2020-02-21 09:58 | History and Physical Report ---
GP History & Physical - History of Present Illness Date of admission: 02/20/20 Date of Examination: 02/21/20 Reason for Admission: Danger to self, Severe anxiety/depression History of Present Illness: Lizzy Lane is a 80y/o male patient who was admitted to the [facility] for depression and suicidal thoughts, per admission note. I attempted to interview the patient this morning, he is lying in bed asleep. He arouses easily but is reluctant to speak and drifts back to sleep. He is confused. He states, "I'm sleeping." His speech is difficult to comprehend. The patient could not be engaged to complete the interview. Spoke withe the patient's son, Jadon at [phone]. Jadon says the patient has been depressed, confused and hasn't taken any of his medications in three months. He says the patient's coumadin was decreased to 4mg in June by a hospital in [place] while visiting there. He says the patient hasn't seen his regular telephone advice nurse in a year and no other doctor since last June. The patient was on coumadin for Afib. Jadon says the patient stopped taking all medications because the patient stated, "they made him confused and crazy." He says after the patient stopped taking the meds he was "better, clear and a normal person." He says the patient was ambulating up to two weeks ago. PAST PSYCHIATRIC HISTORY: Unable to assess PAST MEDICAL HISTORY: None reported Family Psychiatric History: None reported or documented SOCIAL HISTORY Unable to assess REVIEW OF SYSTEMS Unable to assess MENTAL STATUS EXAMINATION Unable to assess Assessment Major Depressive Disorder Noncompliance with other medical treatment and regimen Treatment Plan Patient will be admitted for inpatient psychiatric evaluation, medication adjustment and close monitoring The patient's behavior, mood, sleep and appetite will be closely monitored. Patient will be enrolled in individual and group therapeutic sessions and encouraged to attend. Patient will be provided with a safe and structured environment. Patient's physical health needs will be addressed by the Hospitalist. Hospitalist Consulted Labs including CBC, CMP, Lipid profile and Hemoglobin A1C ordered Social Assessment will be completed and the Physical Therapy Attendant will work with patient and family to ensure a suitable and safe disposition Medication adjustment will be made as clinically indicated Start Lexapro 5mg po daily Start Risperidone 0.25mg po BID Usual Wellness Worship/Preservation: - Start Trazodone 50 mg po QHS - Start Melatonin 5 mg po QHS to promote circadian rhythm The patient agreed on the treatment plan, understood the risk, benefit, alternative treatment, potential consequence of no treatment, and gave informed consent. This certifies that Lizzy Lane is a 80y/o male patient who was admitted to the [facility] floor for major depressive disorder Estimated period of time patient will need to remain in the hospital: [7] Plan for post-hospital care: [outpatient] Legal Status: Voluntary Patient Problems: Current Active Problems HTN (hypertension) (Acute) Reaction to Hospitalization: Accepting Medications and Allergies Allergies Allergy/AdvReac Type Severity Reaction Status Date / Time No Known Allergies Allergy Verified 02/18/20 10:53 Home Medications Medication Instructions Recorded Confirmed Last Taken Type cephALEXin [Keflex] 500 mg PO Q12HR #14 cap 02/18/20 02/20/20 Unknown Rx Potassium Chloride 20 meq PO BID #30 packet 02/20/20 02/20/20 Unknown Rx ARIPiprazole [Aripiprazole] 10 mg PO DAILY 02/21/20 02/21/20 Unknown History Acetaminophen/Codeine [Tylenol 1 tab PO Q4H PRN 02/21/20 02/21/20 Unknown History /Codeine # 3 tab] Cyclobenzaprine [Flexeril 10 MG 5 mg PO Q8H PRN 02/21/20 02/21/20 Unknown History TAB] Escitalopram [Lexapro] 10 mg PO DAILY 02/21/20 02/21/20 Unknown History Losartan Potassium 100 mg PO DAILY 02/21/20 02/21/20 Unknown History Meloxicam 15 mg PO DAILY 02/21/20 02/21/20 Unknown History Metoprolol [Lopressor TAB] 50 mg PO BID 02/21/20 02/21/20 Unknown History PARoxetine [Paxil] 20 mg PO QHS 02/21/20 02/21/20 Unknown History Warfarin Sodium 4 mg PO DAILY 02/21/20 02/21/20 Unknown History buPROPion HCL [Bupropion HCl Sr] 150 mg PO DAILY 02/21/20 02/21/20 Unknown History hydroCHLOROthiazide 12.5 mg PO DAILY 02/21/20 02/21/20 Unknown History [Hydrochlorothiazide] Active Meds: Active Medications Amlodipine Besylate (Amlodipine) 5 mg PO QDAY CONSTANCE Melatonin (Melatonin) 5 mg PO QHS PRN PRN Reason: Sleep Trazodone HCl (Desyrel) 50 mg PO QHS [facility] Last Admin: 02/20/20 21:40 Dose: 50 mg Documented by: Ziprasidone (Geodon) 10 mg IM Q6H PRN PRN Reason: Agitation Results - Results Labs/Vitals: Laboratory Last Values WBC 6.9 K/mm3 (4.5-11.0) 02/21/20 09:41 RBC 4.40 M/mm3 (3.65-5.03) 02/21/20 09:41 Hgb 13.9 gm/dl (11.8-15.2) 02/21/20 09:41 Hct 38.1 % (35.5-45.6) 02/21/20 09:41 MCV 87 fl (84-94) 02/21/20 09:41 MCH 32 pg (28-32) 02/21/20 09:41 MCHC 37 % (32-34) H 02/21/20 09:41 RDW 13.9 % (13.2-15.2) 02/21/20 09:41 Plt Count 239 K/mm3 (140-440) 02/21/20 09:41 Lymph % (Auto) 18.8 % (13.4-35.0) 02/21/20 09:41 [place] % (Auto) 7.1 % (0.0-7.3) 02/21/20 09:41 Eos % (Auto) 0.4 % (0.0-4.3) 02/21/20 09:41 Baso % (Auto) 0.6 % (0.0-1.8) 02/21/20 09:41 Lymph # 1.3 K/mm3 (1.2-5.4) 02/21/20 09:41 [place] # 0.5 K/mm3 (0.0-0.8) 02/21/20 09:41 Eos # 0.0 K/mm3 (0.0-0.4) 02/21/20 09:41 Baso # 0.0 K/mm3 (0.0-0.1) 02/21/20 09:41 Seg Neutrophils % 73.1 % (40.0-70.0) H 02/21/20 09:41 Seg Neutrophils # 5.0 K/mm3 (1.8-7.7) 02/21/20 09:41 POC Glucose 116 (70-105) H 02/21/20 07:08 Last Vital Signs Temp 98.3 F 02/20/20 22:00 Pulse 93 H 02/20/20 22:00 Resp 20 02/20/20 22:00 BP 149/88 02/20/20 22:00 Pulse Ox 99 02/20/20 22:00 Physical Examination - Constitutional Vitals: Vital Signs Temp Pulse Resp BP Pulse Ox 98.3 F 93 H 20 149/88 99 02/20/20 22:00 02/20/20 22:00 02/20/20 22:00 02/20/20 22:00 02/20/20 22:00 Temperature -Last 24 Hours Temperature 98.3 F Mental Status Exam - Vital signs Last Vital Signs Temp 98.3 F 02/20/20 22:00 Pulse 93 H 02/20/20 22:00 Resp 02/20/20 22:00 BP 149/88 02/20/20 22:00 Pulse Ox 99 02/20/20 22:00 Physician Certification - Certification Statement Physician Certification Statement: This is an acknowledgement statement that LIZZY LANE is a 80 year old M who requires inpatient psychiatric admission for treatment which could reasonably be expected to improve the patient's condition for Estimated period of time patient will need to remain in the hospital: [ ] Plan for post-hospital care: [ ]
[2020-02-21 10:24] LABS: Chol/HDL Ratio 3.48 %
[2020-02-21 10:25] LABS: Alanine Aminotransferase 23 units/L (7-56); Albumin 3.4 g/dL (3.9-5); BUN/Creatinine Ratio 28; Blood Urea Nitrogen 17 mg/dL (9-20); Hemolysis Index 6
[2020-02-21] MEDS: amLODIPine 5 MG TAB PO SCH (10:58)
[2020-02-21] MEDS: risperiDONE 0.25 MG TAB PO SCH ×2 (11:55→21:49)
[2020-02-21] MEDS: ESCITALOPRAM 10 MG TAB PO SCH (11:56)
[2020-02-21] MEDS: MELATONIN 5 MG TAB PO PRN (21:49)
[2020-02-21] MEDS: traZODone 50 MG TAB PO SCH (21:49)
[2020-02-22] MEDS: risperiDONE 0.25 MG TAB PO SCH ×3 (00:22→21:28)
[2020-02-22] MEDS: traZODone 50 MG TAB PO SCH ×2 (00:24→21:28)
--- NOTE | 2020-02-22 07:27 | Progress Note ---
Subjective Date of service: 02/22/20 Principal diagnosis: Major Depression w Psychotic Features Subjective Comment: Nurse Note: Patient has been confused. He was unable to participate in activities. He was fed by staff and ate fair amount of meals. Patient was compliant with medication. His amlodipine was held due to low blood pressure. He was sleepy most of the day and was not given risperdal. Patient continues to require maximum assistance with ADLs. He was seen by Wound Care Nurse and was cooperative. Nurse spoke wit his sister, Opal #[phone]. who reported that patient health has been declining since he had TIA 9 months ago. Patient became a bit irritable this morning and attempted to hit Tech when she tried to assist him to bed for wound assessment. He remains on Fall precaution. Will continue to monitor. PSYCH HPI Patient seen this AM, says he does not know where he is, doent know why he is here and says he is "not feeling that Bad". He reports sleeping good, and says he could have gotten a bt more. Says appetite is okay and he is not starving, patient encouraged to eat more today. Reason for continued inpatient treatment: Flat affect, self isolation, poor self care, and refusal to eat MENTAL STATUS EXAMINATION General Appearance and Behavior: Age appropriate, poor/fair/good hygiene, wearing appropriate clothes, lying in bed, good/poor eye contact, cooperative/uncooperative polite/irritable with questioning. Cooperation: Participating/engaged, Withdrawn, Isolative, Threatening, Cooperative, Hostile and Guarded Psychomotor Behavior: Psychomotor agitation, psychomotor retardation, unremarkable and within normal limits Mood: "not hat bad" Affect and affective range: flat Thought Process: Preservative Thought Content: Hoplessness and helplessnesss Speech: soft volume, stutter, paucity of speech Intellectual Functioning: Fair Suicidal Ideation: Denies SI Homicidal Ideation: Denies HI Impulse Control: Impaired Insight and Judgment: Limited insight and judgment Memory: impaired Attention: Normal Orientation: Alert, with intermittent confusion Diagnoses: - Patient Problems (1) Major neurocognitive disorder, due to another medical condition, with behavioral disturbance, severe Current Visit: Yes Status: Acute (2) MDD (major depressive disorder) Current Visit: Yes Status: Acute Treatment Plan Continue current medications Patient will be admitted for inpatient psychiatric evaluation, medication adjustment and close monitoring The patient's behavior, mood, sleep and appetite will be closely monitored. Patient will be enrolled in individual and group therapeutic sessions and encouraged to attend. Patient will be provided with a safe and structured environment. Patient's physical health needs will be addressed by the Hospitalist. Hospitalist Consulted Labs including CBC, CMP, Lipid profile and Hemoglobin A1C ordered Social Assessment will be completed and the Quality Reviewer will work with patient and family to ensure a suitable and safe disposition Medication adjustment will be made as clinically indicated Usual Wellness Amish/Preservation: - Start Trazodone 50 mg po QHS & 50 mg po QHS PRN between 10 PM & 2 AM for insomnia - Start Melatonin 5 mg po QHS to promote circadian rhythm - Start [place]-3 for brain health, reduce impulsivity, and as adjunctive treatment for mood disorder, continue upon discharge given overall benefits. - Start B1 prophylaxis with 200 mg po for 5 days The patient agreed on the treatment plan, understood the risk, benefit, alternative treatment, potential consequence of no treatment, and gave informed consent. Initial Certification This is an acknowledgement statement that LIZZY MOORE is a 80 year old Male who requires inpatient psychiatric admission for treatment which could reasonably be expected to improve the patient's condition for HIS MENTAL HEALTH Estimated period of time patient will need to remain in the hospital: [6 ] Plan for post-hospital care: [ Outpt] Assessment and Plan - Patient Problems (1) Major neurocognitive disorder, due to another medical condition, with behavioral disturbance, severe Current Visit: Yes Status: Acute (2) MDD (major depressive disorder) Current Visit: Yes Status: Acute Medications and Allergies Allergies Allergy/AdvReac Type Severity Reaction Status Date / Time No Known Allergies Allergy Verified 02/18/20 10:53 Home Medications Medication Instructions Recorded Confirmed Last Taken Type cephALEXin [Keflex] 500 mg PO Q12HR #14 cap 02/18/20 02/20/20 Unknown Rx Potassium Chloride 20 meq PO BID #30 packet 02/20/20 02/20/20 Unknown Rx ARIPiprazole [Aripiprazole] 10 mg PO DAILY 02/21/20 02/21/20 Unknown History Acetaminophen/Codeine [Tylenol 1 tab PO Q4H PRN 02/21/20 02/21/20 Unknown History /Codeine # 3 tab] Cyclobenzaprine [Flexeril 10 MG 5 mg PO Q8H PRN 02/21/20 02/21/20 Unknown History TAB] Escitalopram [Lexapro] 10 mg PO DAILY 02/21/20 02/21/20 Unknown History Losartan Potassium 100 mg PO DAILY 02/21/20 02/21/20 Unknown History Meloxicam 15 mg PO DAILY 02/21/20 02/21/20 Unknown History Metoprolol [Lopressor TAB] 50 mg PO BID 02/21/20 02/21/20 Unknown History PARoxetine [Paxil] 20 mg PO QHS 02/21/20 02/21/20 Unknown History Warfarin Sodium 4 mg PO DAILY 02/21/20 02/21/20 Unknown History buPROPion HCL [Bupropion HCl Sr] 150 mg PO DAILY 02/21/20 02/21/20 Unknown History hydroCHLOROthiazide 12.5 mg PO DAILY 02/21/20 02/21/20 Unknown History [Hydrochlorothiazide] Active Meds: Active Medications Amlodipine Besylate (Amlodipine) 5 mg PO QDAY [facility] Last Admin: 02/21/20 10:58 Dose: Not Given Documented by: Escitalopram Oxalate (Lexapro) 5 mg PO QDAY [facility] Last Admin: 02/21/20 11:56 Dose: 5 mg Documented by: Melatonin (Melatonin) 5 mg PO QHS PRN PRN Reason: Sleep Risperidone (Risperdal) 0.25 mg PO BID [facility] Last Admin: 02/22/20 00:22 Dose: Not Given Documented by: Trazodone HCl (Desyrel) 50 mg PO QHS [facility] Last Admin: 02/22/20 00:24 Dose: Not Given Documented by: Ziprasidone (Geodon) 10 mg IM Q6H PRN PRN Reason: Agitation Results - Results Labs/Vitals: Laboratory Last Values WBC 6.9 K/mm3 (4.5-11.0) 02/21/20 09:41 RBC 4.40 M/mm3 (3.65-5.03) 02/21/20 09:41 Hgb 13.9 gm/dl (11.8-15.2) 02/21/20 09:41 Hct 38.1 % (35.5-45.6) 02/21/20 09:41 MCV 87 fl (84-94) 02/21/20 09:41 MCH 32 pg (28-32) 02/21/20 09:41 MCHC 37 % (32-34) H 02/21/20 09:41 RDW 13.9 % (13.2-15.2) 02/21/20 09:41 Plt Count 239 K/mm3 (140-440) 02/21/20 09:41 Lymph % (Auto) 18.8 % (13.4-35.0) 02/21/20 09:41 [place] % (Auto) 7.1 % (0.0-7.3) 02/21/20 09:41 Eos % (Auto) 0.4 % (0.0-4.3) 02/21/20 09:41 Baso % (Auto) 0.6 % (0.0-1.8) 02/21/20 09:41 Lymph # 1.3 K/mm3 (1.2-5.4) 02/21/20 09:41 [place] # 0.5 K/mm3 (0.0-0.8) 02/21/20 09:41 Eos # 0.0 K/mm3 (0.0-0.4) 02/21/20 09:41 Baso # 0.0 K/mm3 (0.0-0.1) 02/21/20 09:41 Seg Neutrophils % 73.1 % (40.0-70.0) H 02/21/20 09:41 Seg Neutrophils # 5.0 K/mm3 (1.8-7.7) 02/21/20 09:41 Sodium 143 mmol/L (137-145) 02/21/20 09:41 Potassium 3.8 mmol/L (3.6-5.0) 02/21/20 09:41 Chloride 101.9 mmol/L (98-107) 02/21/20 09:41 Carbon Dioxide 29 mmol/L (22-30) 02/21/20 09:41 Anion Gap 16 mmol/L 02/21/20 09:41 BUN 17 mg/dL (9-20) 02/21/20 09:41 Creatinine 0.6 mg/dL (0.8-1.5) L 02/21/20 09:41 Estimated GFR > 60 ml/min 02/21/20 09:41 BUN/Creatinine Ratio 28 % 02/21/20 09:41 Glucose 129 mg/dL (75-100) H 02/21/20 09:41 POC Glucose 116 (70-105) H 02/21/20 07:08 Hemoglobin A1c 5.6 % (4-6) 02/21/20 09:41 Calcium 9.0 mg/dL (8.4-10.2) 02/21/20 09:41 Total Bilirubin 1.60 mg/dL (0.1-1.2) H 02/21/20 09:41 AST 41 units/L (5-40) H 02/21/20 09:41 ALT 23 units/L (7-56) 02/21/20 09:41 Alkaline Phosphatase 75 units/L (35-129) 02/21/20 09:41 Total Protein 5.9 g/dL (6.3-8.2) L 02/21/20 09:41 Albumin 3.4 g/dL (3.9-5) L 02/21/20 09:41 Albumin/Globulin Ratio 1.4 % 02/21/20 09:41 Triglycerides 100 mg/dL (2-149) 02/21/20 09:41 Cholesterol 122 mg/dL (50-199) 02/21/20 09:41 LDL Cholesterol Direct 74 mg/dL (50-130) 02/21/20 09:41 HDL Cholesterol 35 mg/dL (40-59) L 02/21/20 09:41 Cholesterol/HDL Ratio 3.48 % 02/21/20 09:41 TSH 2.440 mlU/mL (0.270-4.200) 02/21/20 09:41 Last Vital Signs Temp 98.1 F 02/21/20 11:01 Pulse 72 02/21/20 11:01 Resp 18 02/21/20 11:01 BP 90/63 02/21/20 11:01 Pulse Ox 97 02/21/20 11:01
[2020-02-22] MEDS: ESCITALOPRAM 10 MG TAB PO SCH (09:53)
[2020-02-22] MEDS: amLODIPine 5 MG TAB PO SCH (09:53)
--- NOTE | 2020-02-22 15:12 | Progress Note ---
Assessment and Plan - Patient Problems (1) HTN (hypertension) Current Visit: Yes Status: Acute Qualifiers: Hypertension type: essential hypertension Qualified Code(s): I10 - Essential (primary) hypertension Plan to address problem: Continue medical management, monitor blood pressure every shift History Interval history: 80 YO Male with HTN, Debility, Dementia admitted to [facility] for Psychiatric stabilization. Patient seen and evaluated in his room. Patient appears comfortable. Patient has cognitive slowing. Patient is bedbound. No reported nursing events. Hospitalist Physical - Constitutional Vitals: Temp Pulse Resp BP Pulse Ox 98.1 F 72 18 90/63 97 02/21/20 11:01 02/22/20 09:53 02/21/20 11:01 02/22/20 09:53 02/21/20 11:01 General appearance: Present: no acute distress - EENT Eyes: Present: PERRL ENT: hearing decreased - Neck Neck: Present: supple - Respiratory Respiratory: bilateral: diminished - Cardiovascular Rhythm: regular Heart Sounds: Present: S1 & S2 - Extremities Extremities: no ischemia Extremity abnormal: other - Abdominal General gastrointestinal: soft, non-tender, non-distended - Integumentary Integumentary: Present: clear, dry - Psychiatric Psychiatric: no intact judgment & insight, no memory intact - Neurologic Neurologic: moves all extremities, no gait normal Results - Labs CBC & Chem 7: 02/21/20 09:41 02/21/20 09:41 Labs: Laboratory Last Values WBC 6.9 K/mm3 (4.5-11.0) 02/21/20 09:41 RBC 4.40 M/mm3 (3.65-5.03) 02/21/20 09:41 Hgb 13.9 gm/dl (11.8-15.2) 02/21/20 09:41 Hct 38.1 % (35.5-45.6) 02/21/20 09:41 MCV 87 fl (84-94) 02/21/20 09:41 MCH 32 pg (28-32) 02/21/20 09:41 MCHC 37 % (32-34) H 02/21/20 09:41 RDW 13.9 % (13.2-15.2) 02/21/20 09:41 Plt Count 239 K/mm3 (140-440) 02/21/20 09:41 Lymph % (Auto) 18.8 % (13.4-35.0) 02/21/20 09:41 [place] % (Auto) 7.1 % (0.0-7.3) 02/21/20 09:41 Eos % (Auto) 0.4 % (0.0-4.3) 02/21/20 09:41 Baso % (Auto) 0.6 % (0.0-1.8) 02/21/20 09:41 Lymph # 1.3 K/mm3 (1.2-5.4) 02/21/20 09:41 [place] # 0.5 K/mm3 (0.0-0.8) 02/21/20 09:41 Eos # 0.0 K/mm3 (0.0-0.4) 02/21/20 09:41 Baso # 0.0 K/mm3 (0.0-0.1) 02/21/20 09:41 Seg Neutrophils % 73.1 % (40.0-70.0) H 02/21/20 09:41 Seg Neutrophils # 5.0 K/mm3 (1.8-7.7) 02/21/20 09:41 Sodium 143 mmol/L (137-145) 02/21/20 09:41 Potassium 3.8 mmol/L (3.6-5.0) 02/21/20 09:41 Chloride 101.9 mmol/L (98-107) 02/21/20 09:41 Carbon Dioxide 29 mmol/L (22-30) 02/21/20 09:41 Anion Gap 16 mmol/L 02/21/20 09:41 BUN 17 mg/dL (9-20) 02/21/20 09:41 Creatinine 0.6 mg/dL (0.8-1.5) L 02/21/20 09:41 Estimated GFR > 60 ml/min 02/21/20 09:41 BUN/Creatinine Ratio 28 % 02/21/20 09:41 Glucose 129 mg/dL (75-100) H 02/21/20 09:41 POC Glucose 116 (70-105) H 02/21/20 07:08 Hemoglobin A1c 5.6 % (4-6) 02/21/20 09:41 Calcium 9.0 mg/dL (8.4-10.2) 07/09/20 09:41 Total Bilirubin 1.60 mg/dL (0.1-1.2) H 02/21/20 09:41 AST 41 units/L (5-40) H 02/21/20 09:41 ALT 23 units/L (7-56) 02/21/20 09:41 Alkaline Phosphatase 75 units/L (35-129) 02/21/20 09:41 Total Protein 5.9 g/dL (6.3-8.2) L 02/21/20 09:41 Albumin 3.4 g/dL (3.9-5) L 02/21/20 09:41 Albumin/Globulin Ratio 1.4 % 02/21/20 09:41 Triglycerides 100 mg/dL (2-149) 02/21/20 09:41 Cholesterol 122 mg/dL (50-199) 02/21/20 09:41 LDL Cholesterol Direct 74 mg/dL (50-130) 02/21/20 09:41 HDL Cholesterol 35 mg/dL (40-59) L 02/21/20 09:41 Cholesterol/HDL Ratio 3.48 % 02/21/20 09:41 TSH 2.440 mlU/mL (0.270-4.200) 02/21/20 09:41 Singh/IV: Voiding Method Incontinent Active Medications - Current Medications Current Medications: Generic Name Dose Route Start Last Admin Trade Name Freq PRN Reason Stop Dose Admin Amlodipine Besylate 5 mg 02/21/20 10:00 02/22/20 09:53 Amlodipine PO 5 mg QDAY [facility]ANCE Administration Escitalopram Oxalate 5 mg 02/21/20 11:00 02/22/20 09:53 Lexapro PO 5 mg QDAY [facility] Administration Melatonin 5 mg 02/20/20 22:00 Melatonin PO QHS PRN Sleep Risperidone 0.25 mg 02/21/20 11:00 02/22/20 09:54 Risperdal PO 0.25 mg BID [facility]ANCE Administration Trazodone HCl 50 mg 02/20/20 22:00 02/22/20 00:24 Desyrel PO Not Given QHS [facility]ANCE Ziprasidone 10 mg 02/20/20 09:57 Geodon IM Q6H PRN Agitation Nutrition/Malnutrition Assess - Dietary Evaluation Nutrition/Malnutrition Findings: Nutrition Notes Start: 02/21/20 09:47 Freq: Status: Active Protocol: Document 02/21/20 09:47 LC (Rec: 02/21/20 09:56 LC [email or web address]- [email or web address]) Nutrition Notes Need for Assessment generated from: MD Order Initial or Follow up Assessment Current Diagnosis Hypertension Other Pertinent Diagnosis Debility, Dementia, Depression , Stage 2 sacral ulcer Current Diet Regular + Ensure Enlive daily Labs/Tests reviewed Pertinent Medications reviewed Height 6 ft 2 in Weight 72.8 kg [place] Body Weight (kg) 86.36 BMI 20.6 Weight Status Underweight Subjective/Other Information RD consulted for poor oral intake; MD ordered ONS daily. Pt admitted for psychiatric stabilization. Per records, pt s/p fall three wks ago and has been c/o (L) hip pain. He has been off all medications for nearly three months and has had suicidal ideations. Per RN note, pt combative at times and has not been eating much; one meal intake documented at 25%. 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 No Is Patient Ambulatory and/or Out of Bed No REE-([facility]-confined to bed) 1827.912 Kcal/Kg value to use for calculation 30 Approximate Energy Requirements Using 2184 kcal/Kg Calculation Used for Recommendations Kcal/kg Additional Notes Pro needs 1.25-1.5g/k- 109g/day Fluid needs 1ml/kcal Nutrition Intervention Change Diet Order: Continue current diet order Add Supplement/Snack (indicate name/kcal Ensure Enlive TID /protein ) Provides kCal: 1,050 Provides Protein (gm) 60 Goal #1 PO intake of meals plus ONS to meet at least 75% nutrient needs Goal #2 Wt maintenance and/or gain Goal #3 Wound healing Anticipated Discharge Needs: Continue ONS 2-3 times daily for wt maintenance and wound healing purposes Follow-Up By: 02/26/20 Additional Comments F/U: intakes (meals/ONS), wt
--- NOTE | 2020-02-22 15:16 | Progress Note ---
Assessment and Plan - Patient Problems (1) HTN (hypertension) Current Visit: Yes Status: Acute Qualifiers: Hypertension type: essential hypertension Qualified Code(s): I10 - Essential (primary) hypertension Plan to address problem: Continue medical management, monitor blood pressure every shift History Interval history: 80 YO Male with HTN, Debility, Dementia admitted to [facility] for Psychiatric stabilization. Patient seen and evaluated in his room. Patient appears comfortable. Patient has what appears to be chronic cognitive slowing. Patient is bedbound and incontinent of bladder. No reported nursing events. Hospitalist Physical - Constitutional Vitals: Temp Pulse Resp BP Pulse Ox 98.1 F 72 18 90/63 97 02/21/20 11:01 02/22/20 09:53 02/21/20 11:01 02/22/20 09:53 02/21/20 11:01 General appearance: Present: no acute distress, cachectic - EENT Eyes: Present: PERRL - Neck Neck: Present: supple - Respiratory Respiratory: bilateral: CTA - Cardiovascular Rhythm: regular Heart Sounds: Present: S1 & S2 Peripheral Pulses: within normal limits - Abdominal General gastrointestinal: soft, non-tender, non-distended - Integumentary Integumentary: Present: clear, dry - Psychiatric Psychiatric: no appropriate mood/affect, no intact judgment & insight, no memory intact - Neurologic Neurologic: moves all extremities, no gait normal Results - Labs CBC & Chem 7: 02/21/20 09:41 07 09:41 Labs: Laboratory Last Values WBC 6.9 K/mm3 (4.5-11.0) 02/21/20 09:41 RBC 4.40 M/mm3 (3.65-5.03) 02/21/20 09:41 Hgb 13.9 gm/dl (11.8-15.2) 02/21/20 09:41 Hct 38.1 % (35.5-45.6) 02/21/20 09:41 MCV 87 fl (84-94) 02/21/20 09:41 MCH 32 pg (28-32) 02/21/20 09:41 MCHC 37 % (32-34) H 02/21/20 09:41 RDW 13.9 % (13.2-15.2) 02/21/20 09:41 Plt Count 239 K/mm3 (140-440) 07/09/20 09:41 Lymph % (Auto) 18.8 % (13.4-35.0) 02/21/20 09:41 [place] % (Auto) 7.1 % (0.0-7.3) 02/21/20 09:41 Eos % (Auto) 0.4 % (0.0-4.3) 02/21/20 09:41 Baso % (Auto) 0.6 % (0.0-1.8) 02/21/20 09:41 Lymph # 1.3 K/mm3 (1.2-5.4) 02/21/20 09:41 [place] # 0.5 K/mm3 (0.0-0.8) 02/21/20 09:41 Eos # 0.0 K/mm3 (0.0-0.4) 02/21/20 09:41 Baso # 0.0 K/mm3 (0.0-0.1) 02/21/20 09:41 Seg Neutrophils % 73.1 % (40.0-70.0) H 02/21/20 09:41 Seg Neutrophils # 5.0 K/mm3 (1.8-7.7) 02/21/20 09:41 Sodium 143 mmol/L (137-145) 02/21/20 09:41 Potassium 3.8 mmol/L (3.6-5.0) 02/21/20 09:41 Chloride 101.9 mmol/L (98-107) 02/21/20 09:41 Carbon Dioxide 29 mmol/L (22-30) 02/21/20 09:41 Anion Gap 16 mmol/L 02/21/20 09:41 BUN 17 mg/dL (9-20) 02/21/20 09:41 Creatinine 0.6 mg/dL (0.8-1.5) L 02/21/20 09:41 Estimated GFR > 60 ml/min 02/21/20 09:41 BUN/Creatinine Ratio 28 % 02/21/20 09:41 Glucose 129 mg/dL (75-100) H 02/21/20 09:41 POC Glucose 116 (70-105) H 02/21/20 07:08 Hemoglobin A1c 5.6 % (4-6) 02/21/20 09:41 Calcium 9.0 mg/dL (8.4-10.2) 02/21/20 09:41 Total Bilirubin 1.60 mg/dL (0.1-1.2) H 02/21/20 09:41 AST 41 units/L (5-40) H 02/21/20 09:41 ALT 23 units/L (7-56) 02/21/20 09:41 Alkaline Phosphatase 75 units/L (35-129) 02/21/20 09:41 Total Protein 5.9 g/dL (6.3-8.2) L 02/21/20 09:41 Albumin 3.4 g/dL (3.9-5) L 02/21/20 09:41 Albumin/Globulin Ratio 1.4 % 02/21/20 09:41 Triglycerides 100 mg/dL (2-149) 02/21/20 09:41 Cholesterol 122 mg/dL (50-199) 02/21/20 09:41 LDL Cholesterol Direct 74 mg/dL (50-130) 02/21/20 09:41 HDL Cholesterol 35 mg/dL (40-59) L 02/21/20 09:41 Cholesterol/HDL Ratio 3.48 % 02/21/20 09:41 TSH 2.440 mlU/mL (0.270-4.200) 02/21/20 09:41 Singh/IV: Voiding Method Incontinent Active Medications - Current Medications Current Medications: Generic Name Dose Route Start Last Admin Trade Name Freq PRN Reason Stop Dose Admin Amlodipine Besylate 5 mg 02/21/20 10:00 02/22/20 09:53 Amlodipine PO 5 mg QDAY CONSTANCE Administration Escitalopram Oxalate 5 mg 02/21/20 11:00 02/22/20 09:53 Lexapro PO 5 mg QDAY CONSTANCE Administration Melatonin 5 mg 02/20/20 22:00 Melatonin PO QHS PRN Sleep Risperidone 0.25 mg 02/21/20 11:00 02/22/20 09:54 Risperdal PO 0.25 mg BID CONSTANCE Administration Trazodone HCl 50 mg 02/20/20 22:00 02/22/20 00:24 Desyrel PO Not Given QHS CONSTANCE Ziprasidone 10 mg 02/20/20 09:57 Geodon IM Q6H PRN Agitation Nutrition/Malnutrition Assess - Dietary Evaluation Nutrition/Malnutrition Findings: Nutrition Notes Start: 07/09/20 09:47 Freq: Status: Active Protocol: Document 02/21/20 09:47 LC (Rec: 02/21/20 09:56 LC [email or web address] [email or web address]) Nutrition Notes Need for Assessment generated from: MD Order Initial or Follow up Assessment Current Diagnosis Hypertension Other Pertinent Diagnosis Debility, Dementia, Depression , Stage 2 sacral ulcer Current Diet Regular + Ensure Enlive daily Labs/Tests reviewed Pertinent Medications reviewed Height 6 ft 2 in Weight 72.8 kg [place] Body Weight (kg) 86.36 BMI 20.6 Weight Status Underweight Subjective/Other Information RD consulted for poor oral intake; MD ordered ONS daily. Pt admitted for psychiatric stabilization. Per records, pt s/p fall three wks ago and has been c/o (L) hip pain. He has been off all medications for nearly three months and has had suicidal ideations. Per RN note, pt combative at times and has not been eating much; one meal intake documented at 25%. 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 No Is Patient Ambulatory and/or Out of Bed No REE-([facility]-confined to bed) 1827.912 Kcal/Kg value to use for calculation 30 Approximate Energy Requirements Using 2184 kcal/Kg Calculation Used for Recommendations Kcal/kg Additional Notes Pro needs 1.25-1.5g/k- 109g/day Fluid needs 1ml/kcal Nutrition Intervention Change Diet Order: Continue current diet order Add Supplement/Snack (indicate name/kcal Ensure Enlive TID /protein ) Provides kCal: 1,050 Provides Protein (gm) 60 Goal #1 PO intake of meals plus ONS to meet at least 75% nutrient needs Goal #2 Wt maintenance and/or gain Goal #3 Wound healing Anticipated Discharge Needs: Continue ONS 2-3 times daily for wt maintenance and wound healing purposes Follow-Up By: 02/26/20 Additional Comments F/U: intakes (meals/ONS), wt
--- NOTE | 2020-02-23 08:50 | Progress Note ---
Subjective Date of service: 02/23/20 Principal diagnosis: Major Depression w Psychotic Features Subjective Comment: The patient's medical record was reviewed and the patient's progress was discussed with the nursing staff. The nurse note states the patient is unable to express needs, disorganized, calm and cooperative, poor appetite. During my interview with the patient this morning, he is sitting in the dayroom. He is awake. He is a/o x 2. He says he's "not doing too good." The patient then says, "I'm aggravated with what goes on sometimes in life." He denies hallucinations of any kind. When asked about SI/HI, the patient says, "I want to live. If I didn't want to live I'd get a gun," he then motions his hand to his head as if shooting himself." He says he "slept pretty good." Reason for continued inpatient treatment: The patient continues to be depressed with possible passive suicidal thoughts. REVIEW OF SYSTEMS Constitutional: Negative for weight loss ENT: Negative for stridor Respiratory: Negative for cough or hemoptysis All other systems reviewed and are negative MENTAL STATUS EXAMINATION General Appearance: Dressed appropriately Behavior: calm, cooperative. Good eye contact Mood: "not doing too good." Affect: Flat Speech: Normal tone and pace Thought Process: Goal directed Thought Content: Suicidal Ideation: Passive Homicidal Ideation: Denies Hallucinations: Denies Delusions: Denies Insight and Judgment: Limited Memory/Cognition: Limited Assessment Major Depressive Disorder Noncompliance with other medical treatment and regimen Treatment Plan Patient will be admitted for inpatient psychiatric evaluation, medication adjustment and close monitoring The patient's behavior, mood, sleep and appetite will be closely monitored. Patient will be enrolled in individual and group therapeutic sessions and encouraged to attend. Patient will be provided with a safe and structured environment. Patient's physical health needs will be addressed by the Hospitalist. Hospitalist Consulted Labs including CBC, CMP, Lipid profile and Hemoglobin A1C ordered Social Assessment will be completed and the Printing Equipment Mechanic Apprentice will work with patient and family to ensure a suitable and safe disposition Medication adjustment will be made as clinically indicated D/c Risperidone Start Abilify 5mg po daily to help with resistant depression Usual Wellness [facility]/Preservation: - Start Trazodone 50 mg po QHS - Start Melatonin 5 mg po QHS to promote circadian rhythm The patient agreed on the treatment plan, understood the risk, benefit, alternative treatment, potential consequence of no treatment, and gave informed consent. Estimated period of time patient will need to remain in the hospital: [6] Plan for post-hospital care: [outpatient] Medications and Allergies Allergies Allergy/AdvReac Type Severity Reaction Status Date / Time No Known Allergies Allergy Verified 02/18/20 10:53 Home Medications Medication Instructions Recorded Confirmed Last Taken Type cephALEXin [Keflex] 500 mg PO Q12HR #14 cap 02/18/20 02/20/20 Unknown Rx Potassium Chloride 20 meq PO BID #30 packet 02/20/20 02/20/20 Unknown Rx ARIPiprazole [Aripiprazole] 10 mg PO DAILY 02/21/20 02/21/20 Unknown History Acetaminophen/Codeine [Tylenol 1 tab PO Q4H PRN 02/21/20 02/21/20 Unknown History /Codeine # 3 tab] Cyclobenzaprine [Flexeril 10 MG 5 mg PO Q8H PRN 02/21/20 02/21/20 Unknown History TAB] Escitalopram [Lexapro] 10 mg PO DAILY 02/21/20 02/21/20 Unknown History Losartan Potassium 100 mg PO DAILY 02/21/20 02/21/20 Unknown History Meloxicam 15 mg PO DAILY 02/21/20 02/21/20 Unknown History Metoprolol [Lopressor TAB] 50 mg PO BID 02/21/20 02/21/20 Unknown History PARoxetine [Paxil] 20 mg PO QHS 02/21/20 02/21/20 Unknown History Warfarin Sodium 4 mg PO DAILY 02/21/20 02/21/20 Unknown History buPROPion HCL [Bupropion HCl Sr] 150 mg PO DAILY 02/21/20 02/21/20 Unknown History hydroCHLOROthiazide 12.5 mg PO DAILY 02/21/20 02/21/20 Unknown History [Hydrochlorothiazide] Active Meds: Active Medications Amlodipine Besylate (Amlodipine) 5 mg PO QDAY [facility] Last Admin: 02/22/20 09:53 Dose: 5 mg Documented by: Escitalopram Oxalate (Lexapro) 5 mg PO QDAY [facility] Last Admin: 02/22/20 09:53 Dose: 5 mg Documented by: Melatonin (Melatonin) 5 mg PO QHS PRN PRN Reason: Sleep Risperidone (Risperdal) 0.25 mg PO BID [facility] Last Admin: 02/22/20 21:28 Dose: 0.25 mg Documented by: Trazodone HCl (Desyrel) 50 mg PO QHS [facility] Last Admin: 02/22/20 21:28 Dose: 50 mg Documented by: Ziprasidone (Geodon) 10 mg IM Q6H PRN PRN Reason: Agitation Results - Results Labs/Vitals: Laboratory Last Values WBC 6.9 K/mm3 (4.5-11.0) 02/21/20 09:41 RBC 4.40 M/mm3 (3.65-5.03) 02/21/20 09:41 Hgb 13.9 gm/dl (11.8-15.2) 02/21/20 09:41 Hct 38.1 % (35.5-45.6) 02/21/20 09:41 MCV 87 fl (84-94) 02/21/20 09:41 MCH 32 pg (28-32) 02/21/20 09:41 MCHC 37 % (32-34) H 02/21/20 09:41 RDW 13.9 % (13.2-15.2) 02/21/20 09:41 Plt Count 239 K/mm3 (140-440) 02/21/20 09:41 Lymph % (Auto) 18.8 % (13.4-35.0) 02/21/20 09:41 [place] % (Auto) 7.1 % (0.0-7.3) 02/21/20 09:41 Eos % (Auto) 0.4 % (0.0-4.3) 02/21/20 09:41 Baso % (Auto) 0.6 % (0.0-1.8) 02/21/20 09:41 Lymph # 1.3 K/mm3 (1.2-5.4) 02/21/20 09:41 [place] # 0.5 K/mm3 (0.0-0.8) 02/21/20 09:41 Eos # 0.0 K/mm3 (0.0-0.4) 02/21/20 09:41 Baso # 0.0 K/mm3 (0.0-0.1) 02/21/20 09:41 Seg Neutrophils % 73.1 % (40.0-70.0) H 02/21/20 09:41 Seg Neutrophils # 5.0 K/mm3 (1.8-7.7) 02/21/20 09:41 Sodium 143 mmol/L (137-145) 02/21/20 09:41 Potassium 3.8 mmol/L (3.6-5.0) 02/21/20 09:41 Chloride 101.9 mmol/L (98-107) 02/21/20 09:41 Carbon Dioxide 29 mmol/L (22-30) 02/21/20 09:41 Anion Gap 16 mmol/L 02/21/20 09:41 BUN 17 mg/dL (9-20) 02/21/20 09:41 Creatinine 0.6 mg/dL (0.8-1.5) L 02/21/20 09:41 Estimated GFR > 60 ml/min 02/21/20 09:41 BUN/Creatinine Ratio 28 % 02/21/20 09:41 Glucose 129 mg/dL (75-100) H 02/21/20 09:41 POC Glucose 116 (70-105) H 02/21/20 07:08 Hemoglobin A1c 5.6 % (4-6) 02/21/20 09:41 Calcium 9.0 mg/dL (8.4-10.2) 02/21/20 09:41 Total Bilirubin 1.60 mg/dL (0.1-1.2) H 02/21/20 09:41 AST 41 units/L (5-40) H 02/21/20 09:41 ALT 23 units/L (7-56) 02/21/20 09:41 Alkaline Phosphatase 75 units/L (35-129) 02/21/20 09:41 Total Protein 5.9 g/dL (6.3-8.2) L 02/21/20 09:41 Albumin 3.4 g/dL (3.9-5) L 02/21/20 09:41 Albumin/Globulin Ratio 1.4 % 02/21/20 09:41 Triglycerides 100 mg/dL (2-149) 02/21/20 09:41 Cholesterol 122 mg/dL (50-199) 02/21/20 09:41 LDL Cholesterol Direct 74 mg/dL (50-130) 02/21/20 09:41 HDL Cholesterol 35 mg/dL (40-59) L 02/21/20 09:41 Cholesterol/HDL Ratio 3.48 % 02/21/20 09:41 TSH 2.440 mlU/mL (0.270-4.200) 02/21/20 09:41 Last Vital Signs Temp 98.0 F 02/22/20 22:00 Pulse 98 H 02/22/20 22:00 Resp 18 02/22/20 22:00 BP 136/86 02/22/20 22:00 Pulse Ox 96 02/22/20 22:00
[2020-02-23] MEDS: ESCITALOPRAM 10 MG TAB PO SCH (09:54)
[2020-02-23] MEDS: ARIPiprazole 5 MG TAB PO SCH (09:54)
[2020-02-23] MEDS: amLODIPine 5 MG TAB PO SCH (09:54)
[2020-02-23] MEDS: traZODone 50 MG TAB PO SCH (22:25)
--- NOTE | 2020-02-24 07:31 | Progress Note ---
Subjective Date of service: 02/24/20 Principal diagnosis: Major Depression w Psychotic Features Subjective Comment: Nurse Note: Received in bed awake. Speech is uncleared and pt cannot make self understood. He appears relaxed with no discomfort observed. No acute distress observed and none reported. Will continue to monitor for safety. PSYCH HPI Mr Wilson seen this AM, more alert and awake in his [place] chair, reports doing okay, denies feelings of sadness or depression and also denies suicidal ideation, syas" why would I want to do that". Patient compliant with medications and stable mood Reason for continued inpatient treatment: Pt symptoms improved, intermittent confusion and continue to observe for mood stability, and discuss with team for discharge plans tomorrow. MENTAL STATUS EXAMINATION General Appearance and Behavior: Age appropriate, poor/fair/good hygiene, wearing appropriate clothes, lying in bed, good/poor eye contact, cooperative/uncooperative polite/irritable with questioning. Cooperation: Participating/engaged, Withdrawn, Isolative, Threatening, Cooperative, Hostile and Guarded Psychomotor Behavior: Psychomotor agitation, psychomotor retardation, unremarkable and within normal limits Mood: "not hat bad" Affect and affective range: flat Thought Process: Preservative Thought Content: Hoplessness and helplessnesss Speech: soft volume, stutter, paucity of speech Intellectual Functioning: Fair Suicidal Ideation: Denies SI Homicidal Ideation: Denies HI Impulse Control: Impaired Insight and Judgment: Limited insight and judgment Memory: impaired Attention: Normal Orientation: Alert, with intermittent confusion Diagnoses: - Patient Problems (1) Major neurocognitive disorder, due to another medical condition, with beh avioral disturbance, severe Current Visit: Yes Status: Acute (2) MDD (major depressive disorder) Current Visit: Yes Status: Acute Treatment Plan Continue current medications Patient will be admitted for inpatient psychiatric evaluation, medication a djustment and close monitoring The patient's behavior, mood, sleep and appetite will be closely monitored. Patient will be enrolled in individual and group therapeutic sessions and encouraged to attend. Patient will be provided with a safe and structured environment. Patient's physical health needs will be addressed by the Hospitalist. Hospitalist Consulted Labs including CBC, CMP, Lipid profile and Hemoglobin A1C ordered Social Assessment will be completed and the Procurement Forester will work with patient and family to ensure a suitable and safe disposition Medication adjustment will be made as clinically indicated Usual Wellness [facility]/Preservation: - Start Trazodone 50 mg po QHS & 50 mg po QHS PRN between 10 PM & 2 AM for insomnia - Start Melatonin 5 mg po QHS to promote circadian rhythm - Start Dyer-3 for brain health, reduce impulsivity, and as adjunctive treatment for mood disorder, continue upon discharge given overall benefits. - Start B1 prophylaxis with 200 mg po for 5 days The patient agreed on the treatment plan, understood the risk, benefit, alternative treatment, potential consequence of no treatment, and gave informed consent. Initial Certification This is an acknowledgement statement that LIZZY MOORE is a 80 year old Male who requires inpatient psychiatric admission for treatment which could reasonably be expected to improve the patient's condition for HIS MENTAL HEALTH Estimated period of time patient will need to remain in the hospital: [2 ] Plan for post-hospital care: [ Outpt] Assessment and Plan - Patient Problems (1) Major neurocognitive disorder, due to another medical condition, with behavioral disturbance, severe Current Visit: Yes Status: Acute (2) MDD (major depressive disorder) Current Visit: Yes Status: Acute Medications and Allergies Allergies Allergy/AdvReac Type Severity Reaction Status Date / Time No Known Allergies Allergy Verified 02/18/20 10:53 Home Medications Medication Instructions Recorded Confirmed Last Taken Type cephALEXin [Keflex] 500 mg PO Q12HR #14 cap 02/18/20 02/20/20 Unknown Rx Potassium Chloride 20 meq PO BID #30 packet 02/20/20 02/20/20 Unknown Rx ARIPiprazole [Aripiprazole] 10 mg PO DAILY 02/21/20 02/21/20 Unknown History Acetaminophen/Codeine [Tylenol 1 tab PO Q4H PRN 02/21/20 02/21/20 Unknown History /Codeine # 3 tab] Cyclobenzaprine [Flexeril 10 MG 5 mg PO Q8H PRN 02/21/20 02/21/20 Unknown History TAB] Escitalopram [Lexapro] 10 mg PO DAILY 02/21/20 02/21/20 Unknown History Losartan Potassium 100 mg PO DAILY 02/21/20 02/21/20 Unknown History Meloxicam 15 mg PO DAILY 02/21/20 02/21/20 Unknown History Metoprolol [Lopressor TAB] 50 mg PO BID 02/21/20 02/21/20 Unknown History PARoxetine [Paxil] 20 mg PO QHS 02/21/20 02/21/20 Unknown History Warfarin Sodium 4 mg PO DAILY 02/21/20 02/21/20 Unknown History buPROPion HCL [Bupropion HCl Sr] 150 mg PO DAILY 02/21/20 02/21/20 Unknown History hydroCHLOROthiazide 12.5 mg PO DAILY 02/21/20 02/21/20 Unknown History [Hydrochlorothiazide] Active Meds: Active Medications Amlodipine Besylate (Amlodipine) 5 mg PO QDAY [facility] Last Admin: 02/23/20 09:54 Dose: 5 mg Documented by: Aripiprazole (Aripiprazole) 5 mg PO QDAY [facility] Last Admin: 02/23/20 09:54 Dose: 5 mg Documented by: Escitalopram Oxalate (Lexapro) 5 mg PO QDAY [facility] Last Admin: 02/23/20 09:54 Dose: 5 mg Documented by: Melatonin (Melatonin) 5 mg PO QHS PRN PRN Reason: Sleep Trazodone HCl (Desyrel) 50 mg PO QHS [facility] Last Admin: 02/23/20 22:25 Dose: Not Given Documented by: Ziprasidone (Geodon) 10 mg IM Q6H PRN PRN Reason: Agitation Results - Results Labs/Vitals: Laboratory Last Values WBC 6.9 K/mm3 (4.5-11.0) 02/21/20 09:41 RBC 4.40 M/mm3 (3.65-5.03) 02/21/20 09:41 Hgb 13.9 gm/dl (11.8-15.2) 02/21/20 09:41 Hct 38.1 % (35.5-45.6) 02/21/20 09:41 MCV 87 fl (84-94) 02/21/20 09:41 MCH 32 pg (28-32) 02/21/20 09:41 MCHC 37 % (32-34) H 02/21/20 09:41 RDW 13.9 % (13.2-15.2) 02/21/20 09:41 Plt Count 239 K/mm3 (140-440) 02/21/20 09:41 Lymph % (Auto) 18.8 % (13.4-35.0) 02/21/20 09:41 [place] % (Auto) 7.1 % (0.0-7.3) 02/21/20 09:41 Eos % (Auto) 0.4 % (0.0-4.3) 02/21/20 09:41 Baso % (Auto) 0.6 % (0.0-1.8) 02/21/20 09:41 Lymph # 1.3 K/mm3 (1.2-5.4) 02/21/20 09:41 [place] # 0.5 K/mm3 (0.0-0.8) 02/21/20 09:41 Eos # 0.0 K/mm3 (0.0-0.4) 02/21/20 09:41 Baso # 0.0 K/mm3 (0.0-0.1) 02/21/20 09:41 Seg Neutrophils % 73.1 % (40.0-70.0) H 02/21/20 09:41 Seg Neutrophils # 5.0 K/mm3 (1.8-7.7) 02/21/20 09:41 Sodium 143 mmol/L (137-145) 02/21/20 09:41 Potassium 3.8 mmol/L (3.6-5.0) 02/21/20 09:41 Chloride 101.9 mmol/L (98-107) 02/21/20 09:41 Carbon Dioxide 29 mmol/L (22-30) 02/21/20 09:41 Anion Gap 16 mmol/L 02/21/20 09:41 BUN 17 mg/dL (9-20) 02/21/20 09:41 Creatinine 0.6 mg/dL (0.8-1.5) L 02/21/20 09:41 Estimated GFR > 60 ml/min 02/21/20 09:41 BUN/Creatinine Ratio 28 % 02/21/20 09:41 Glucose 129 mg/dL (75-100) H 02/21/20 09:41 POC Glucose 116 (70-105) H 02/21/20 07:08 Hemoglobin A1c 5.6 % (4-6) 02/21/20 09:41 Calcium 9.0 mg/dL (8.4-10.2) 02/21/20 09:41 Total Bilirubin 1.60 mg/dL (0.1-1.2) H 02/21/20 09:41 AST 41 units/L (5-40) H 02/21/20 09:41 ALT 23 units/L (7-56) 02/21/20 09:41 Alkaline Phosphatase 75 units/L (35-129) 02/21/20 09:41 Total Protein 5.9 g/dL (6.3-8.2) L 02/21/20 09:41 Albumin 3.4 g/dL (3.9-5) L 02/21/20 09:41 Albumin/Globulin Ratio 1.4 % 02/21/20 09:41 Triglycerides 100 mg/dL (2-149) 02/21/20 09:41 Cholesterol 122 mg/dL (50-199) 02/21/20 09:41 LDL Cholesterol Direct 74 mg/dL (50-130) 02/21/20 09:41 HDL Cholesterol 35 mg/dL (40-59) L 02/21/20 09:41 Cholesterol/HDL Ratio 3.48 % 02/21/20 09:41 TSH 2.440 mlU/mL (0.270-4.200) 02/21/20 09:41 Last Vital Signs Temp 98 F 02/23/20 20:41 Pulse 93 H 02/23/20 20:41 Resp 18 02/23/20 20:41 BP 124/81 02/23/20 20:41 Pulse Ox 96 02/23/20 20:41
[2020-02-24 08:33] LABS: INR 1.03 (0.87-1.13)
[2020-02-24] MEDS: ESCITALOPRAM 10 MG TAB PO SCH (11:04)
[2020-02-24] MEDS: ARIPiprazole 5 MG TAB PO SCH (11:04)
[2020-02-24] MEDS: amLODIPine 5 MG TAB PO SCH (11:07)
[2020-02-24] MEDS: APIXABAN 2.5 MG TAB PO SCH ×2 (13:47→22:23)
--- NOTE | 2020-02-24 18:32 | Progress Note ---
Assessment and Plan - Patient Problems (1) HTN (hypertension) Current Visit: Yes Status: Acute Qualifiers: Hypertension type: essential hypertension Qualified Code(s): I10 - Essential (primary) hypertension Plan to address problem: Continue medical management, monitor blood pressure every shift (2) Atrial fibrillation Current Visit: Yes Status: Acute Qualifiers: Atrial fibrillation type: unspecified chronic Qualified Code(s): I48.20 - Chronic atrial fibrillation, unspecified; I48.2 - Chronic atrial fibrillation Plan to address problem: Resume therapeutic anticoagulation at this time. Supportive care. History Interval history: 80 YO Male with HTN, Debility, Dementia admitted to [facility] for Psychiatric stabilization. Patient seen and evaluated in his room. Patient appears comfortable. Patient has what appears to be chronic cognitive slowing. Patient is bedbound and incontinent of bladder. No reported nursing events. Notified by nursing staff that patient has history of atrial fibrillation as outpatient. Patient was taking Coumadin therapy for therapeutic anticoagulation but discontinued taking the medication approximately 3 months ago. Patient initiated on Coumadin therapy. Hospitalist Physical - Constitutional Vitals: Temp Pulse Resp BP Pulse Ox 97.7 F 96 H 18 124/82 98 02/24/20 09:17 02/24/20 11:07 02/24/20 09:17 02/24/20 11:07 02/24/20 09:17 General appearance: Present: no acute distress, cachectic - EENT Eyes: Present: PERRL ENT: hearing decreased - Respiratory Respiratory effort: normal Respiratory: bilateral: CTA - Cardiovascular Rhythm: regular Heart Sounds: Present: S1 & S2 - Extremities Extremities: no ischemia Peripheral Pulses: within normal limits - Abdominal General gastrointestinal: soft, non-tender, non-distended - Integumentary Integumentary: Present: clear, dry - Psychiatric Psychiatric: cooperative - Neurologic Neurologic: CNII-XII intact Results - Labs CBC & Chem 7: 02/21/20 09:41 02/21/20 09:41 Labs: Laboratory Last Values WBC 6.9 K/mm3 (4.5-11.0) 02/21/20 09:41 RBC 4.40 M/mm3 (3.65-5.03) 02/21/20 09:41 Hgb 13.9 gm/dl (11.8-15.2) 02/21/20 09:41 Hct 38.1 % (35.5-45.6) 02/21/20 09:41 MCV 87 fl (84-94) 02/21/20 09:41 MCH 32 pg (28-32) 02/21/20 09:41 MCHC 37 % (32-34) H 02/21/20 09:41 RDW 13.9 % (13.2-15.2) 02/21/20 09:41 Plt Count 239 K/mm3 (140-440) 02/21/20 09:41 Lymph % (Auto) 18.8 % (13.4-35.0) 02/21/20 09:41 [place] % (Auto) 7.1 % (0.0-7.3) 02/21/20 09:41 Eos % (Auto) 0.4 % (0.0-4.3) 02/21/20 09:41 Baso % (Auto) 0.6 % (0.0-1.8) 02/21/20 09:41 Lymph # 1.3 K/mm3 (1.2-5.4) 02/21/20 09:41 [place] # 0.5 K/mm3 (0.0-0.8) 02/21/20 09:41 Eos # 0.0 K/mm3 (0.0-0.4) 02/21/20 09:41 Baso # 0.0 K/mm3 (0.0-0.1) 02/21/20 09:41 Seg Neutrophils % 73.1 % (40.0-70.0) H 02/21/20 09:41 Seg Neutrophils # 5.0 K/mm3 (1.8-7.7) 02/21/20 09:41 PT 13.3 Sec. (12.2-14.9) 02/24/20 07:39 INR 1.03 (0.87-1.13) 02/24/20 07:39 Sodium 143 mmol/L (137-145) 02/21/20 09:41 Potassium 3.8 mmol/L (3.6-5.0) 02/21/20 09:41 Chloride 101.9 mmol/L (98-107) 02/21/20 09:41 Carbon Dioxide 29 mmol/L (22-30) 02/21/20 09:41 Anion Gap 16 mmol/L 02/21/20 09:41 BUN 17 mg/dL (9-20) 02/21/20 09:41 Creatinine 0.6 mg/dL (0.8-1.5) L 02/21/20 09:41 Estimated GFR > 60 ml/min 02/21/20 09:41 BUN/Creatinine Ratio 28 % 02/21/20 09:41 Glucose 129 mg/dL (75-100) H 02/21/20 09:41 POC Glucose 116 (70-105) H 02/21/20 07:08 Hemoglobin A1c 5.6 % (4-6) 02/21/20 09:41 Calcium 9.0 mg/dL (8.4-10.2) 02/21/20 09:41 Total Bilirubin 1.60 mg/dL (0.1-1.2) H 02/21/20 09:41 AST 41 units/L (5-40) H 02/21/20 09:41 ALT 23 units/L (7-56) 02/21/20 09:41 Alkaline Phosphatase 75 units/L (35-129) 02/21/20 09:41 Total Protein 5.9 g/dL (6.3-8.2) L 02/21/20 09:41 Albumin 3.4 g/dL (3.9-5) L 02/21/20 09:41 Albumin/Globulin Ratio 1.4 % 02/21/20 09:41 Triglycerides 100 mg/dL (2-149) 02/21/20 09:41 Cholesterol 122 mg/dL (50-199) 02/21/20 09:41 LDL Cholesterol Direct 74 mg/dL (50-130) 02/21/20 09:41 HDL Cholesterol 35 mg/dL (40-59) L 02/21/20 09:41 Cholesterol/HDL Ratio 3.48 % 02/21/20 09:41 TSH 2.440 mlU/mL (0.270-4.200) 02/21/20 09:41 Singh/IV: Voiding Method Toilet Active Medications - Current Medications Current Medications: Generic Name Dose Route Start Last Admin Trade Name Freq PRN Reason Stop Dose Admin Amlodipine Besylate 5 mg 02/21/20 10:00 02/24/20 11:07 Amlodipine PO 5 mg QDAY [facility] Administration Apixaban 2.5 mg 02/24/20 11:01 02/24/20 13:47 Eliquis PO 2.5 mg Q12HR [facility] Administration Protocol Aripiprazole 5 mg 02/23/20 10:00 02/24/20 11:04 Aripiprazole PO 5 mg QDAY [facility] Administration Escitalopram Oxalate 5 mg 02/21/20 11:00 02/24/20 11:04 Lexapro PO 5 mg QDAY [facility] Administration Melatonin 5 mg 02/20/20 22:00 Melatonin PO QHS PRN Sleep Trazodone HCl 50 mg 02/20/20 22:00 02/23/20 22:25 Desyrel PO Not Given QHS [facility] Ziprasidone 10 mg 02/20/20 09:57 Geodon IM Q6H PRN Agitation Nutrition/Malnutrition Assess - Dietary Evaluation Nutrition/Malnutrition Findings: Nutrition Notes Start: 02/21/20 09:47 Freq: Status: Active Protocol: Document 02/21/20 09:47 LC (Rec: 02/21/20 09:56 LC [id number]- [id number]) Nutrition Notes Need for Assessment generated from: MD Order Initial or Follow up Assessment Current Diagnosis Hypertension Other Pertinent Diagnosis Debility, Dementia, Depression , Stage 2 sacral ulcer Current Diet Regular + Ensure Enlive daily Labs/Tests reviewed Pertinent Medications reviewed Height 6 ft 2 in Weight 72.8 kg [place] Body Weight (kg) 86.36 BMI 20.6 Weight Status Underweight Subjective/Other Information RD consulted for poor oral intake; MD ordered ONS daily. Pt admitted for psychiatric stabilization. Per records, pt s/p fall three wks ago and has been c/o (L) hip pain. He has been off all medications for nearly three months and has had suicidal ideations. Per RN note, pt combative at times and has not been eating much; one meal intake documented at 25%. Burn Absent Trauma Absent Current % PO Poor (25-49%) Minimum of two criteria No Energy Intake (severe) < or equal to 50% Estimated Energy Requirement > or equal to 5 days #1 Nutrition Diagnosis Inadequate oral intake Etiology dementia, depression As Evidenced by Signs and Symptoms pt with poor oral intake [employer] and currently Is patient on ventilator? No Is Patient Ambulatory and/or Out of Bed No REE-([facility]-confined to bed) 1827.912 Kcal/Kg value to use for calculation 30 Approximate Energy Requirements Using 2184 kcal/Kg Calculation Used for Recommendations Kcal/kg Additional Notes Pro needs 1.25-1.5g/k- 109g/day Fluid needs 1ml/kcal Nutrition Intervention Change Diet Order: Continue current diet order Add Supplement/Snack (indicate name/kcal Ensure Enlive TID /protein ) Provides kCal: 1,050 Provides Protein (gm) 60 Goal #1 PO intake of meals plus ONS to meet at least 75% nutrient needs Goal #2 Wt maintenance and/or gain Goal #3 Wound healing Anticipated Discharge Needs: Continue ONS 2-3 times daily for wt maintenance and wound healing purposes Follow-Up By: 02/26/20 Additional Comments F/U: intakes (meals/ONS), wt
--- NOTE | 2020-02-24 18:33 | Progress Note ---
Assessment and Plan - Patient Problems (1) HTN (hypertension) Current Visit: Yes Status: Acute Qualifiers: Hypertension type: essential hypertension Qualified Code(s): I10 - Essential (primary) hypertension Plan to address problem: Continue medical management, monitor blood pressure every shift (2) Atrial fibrillation Current Visit: Yes Status: Acute Qualifiers: Atrial fibrillation type: unspecified chronic Qualified Code(s): I48.20 - Chronic atrial fibrillation, unspecified; I48.2 - Chronic atrial fibrillation Plan to address problem: Resume therapeutic anticoagulation with Eliquis. Supportive care. History Interval history: 80 YO Male with HTN, Debility, Dementia admitted to [facility] for Psychiatric stabilization. Patient seen and evaluated in his room. Patient appears comfortable. Patient has what appears to be chronic cognitive slowing. Patient is bedbound and incontinent of bladder. No reported nursing events. Patient initiated on Eliquis therapy. Coumadin discontinued. Hospitalist Physical - Constitutional Vitals: Temp Pulse Resp BP Pulse Ox 97.7 F 96 H 18 124/82 98 02/24/20 09:17 02/24/20 11:07 02/24/20 09:17 02/24/20 11:07 02/24/20 09:17 General appearance: Present: no acute distress, cachectic - EENT Eyes: Present: PERRL ENT: hearing decreased - Neck Neck: Present: supple - Respiratory Respiratory: bilateral: CTA - Cardiovascular Rhythm: regular Heart Sounds: Present: S1 & S2 - Extremities Extremities: no ischemia Peripheral Pulses: within normal limits - Abdominal General gastrointestinal: soft, non-tender, non-distended - Integumentary Integumentary: Present: clear, erythema - Psychiatric Psychiatric: cooperative - Neurologic Neurologic: CNII-XII intact Results - Labs CBC & Chem 7: 02/21/20 09:41 02/21/20 09:41 Labs: Laboratory Last Values WBC 6.9 K/mm3 (4.5-11.0) 02/21/20 09:41 RBC 4.40 M/mm3 (3.65-5.03) 02/21/20 09:41 Hgb 13.9 gm/dl (11.8-15.2) 02/21/20 09:41 Hct 38.1 % (35.5-45.6) 02/21/20 09:41 MCV 87 fl (84-94) 02/21/20 09:41 MCH 32 pg (28-32) 02/21/20 09:41 MCHC 37 % (32-34) H 02/21/20 09:41 RDW 13.9 % (13.2-15.2) 02/21/20 09:41 Plt Count 239 K/mm3 (140-440) 02/21/20 09:41 Lymph % (Auto) 18.8 % (13.4-35.0) 02/21/20 09:41 [place] % (Auto) 7.1 % (0.0-7.3) 02/21/20 09:41 Eos % (Auto) 0.4 % (0.0-4.3) 02/21/20 09:41 Baso % (Auto) 0.6 % (0.0-1.8) 02/21/20 09:41 Lymph # 1.3 K/mm3 (1.2-5.4) 02/21/20 09:41 [place] # 0.5 K/mm3 (0.0-0.8) 02/21/20 09:41 Eos # 0.0 K/mm3 (0.0-0.4) 02/21/20 09:41 Baso # 0.0 K/mm3 (0.0-0.1) 02/21/20 09:41 Seg Neutrophils % 73.1 % (40.0-70.0) H 02/21/20 09:41 Seg Neutrophils # 5.0 K/mm3 (1.8-7.7) 02/21/20 09:41 PT 13.3 Sec. (12.2-14.9) 02/24/20 07:39 INR 1.03 (0.87-1.13) 02/24/20 07:39 Sodium 143 mmol/L (137-145) 02/21/20 09:41 Potassium 3.8 mmol/L (3.6-5.0) 02/21/20 09:41 Chloride 101.9 mmol/L (98-107) 02/21/20 09:41 Carbon Dioxide 29 mmol/L (22-30) 02/21/20 09:41 Anion Gap 16 mmol/L 02/21/20 09:41 BUN 17 mg/dL (9-20) 02/21/20 09:41 Creatinine 0.6 mg/dL (0.8-1.5) L 02/21/20 09:41 Estimated GFR > 60 ml/min 02/21/20 09:41 BUN/Creatinine Ratio 28 % 02/21/20 09:41 Glucose 129 mg/dL (75-100) H 02/21/20 09:41 POC Glucose 116 (70-105) H 02/21/20 07:08 Hemoglobin A1c 5.6 % (4-6) 02/21/20 09:41 Calcium 9.0 mg/dL (8.4-10.2) 02/21/20 09:41 Total Bilirubin 1.60 mg/dL (0.1-1.2) H 02/21/20 09:41 AST 41 units/L (5-40) H 02/21/20 09:41 ALT 23 units/L (7-56) 02/21/20 09:41 Alkaline Phosphatase 75 units/L (35-129) 02/21/20 09:41 Total Protein 5.9 g/dL (6.3-8.2) L 02/21/20 09:41 Albumin 3.4 g/dL (3.9-5) L 02/21/20 09:41 Albumin/Globulin Ratio 1.4 % 02/21/20 09:41 Triglycerides 100 mg/dL (2-149) 02/21/20 09:41 Cholesterol 122 mg/dL (50-199) 02/21/20 09:41 LDL Cholesterol Direct 74 mg/dL (50-130) 02/21/20 09:41 HDL Cholesterol 35 mg/dL (40-59) L 02/21/20 09:41 Cholesterol/HDL Ratio 3.48 % 02/21/20 09:41 TSH 2.440 mlU/mL (0.270-4.200) 02/21/20 09:41 Singh/IV: Voiding Method Toilet Active Medications - Current Medications Current Medications: Generic Name Dose Route Start Last Admin Trade Name Freq PRN Reason Stop Dose Admin Amlodipine Besylate 5 mg 02/21/20 10:00 02/24/20 11:07 Amlodipine PO 5 mg QDAY CONSTANCE Administration Apixaban 2.5 mg 02/24/20 11:01 02/24/20 13:47 Eliquis PO 2.5 mg Q12HR CONSTANCE Administration Protocol Aripiprazole 5 mg 02/23/20 10:00 02/24/20 11:04 Aripiprazole PO 5 mg QDAY CONSTANCE Administration Escitalopram Oxalate 5 mg 02/21/20 11:00 02/24/20 11:04 Lexapro PO 5 mg QDAY CONSTANCE Administration Melatonin 5 mg 02/20/20 22:00 Melatonin PO QHS PRN Sleep Trazodone HCl 50 mg 02/20/20 22:00 02/23/20 22:25 Desyrel PO Not Given QHS CONSTANCE Ziprasidone 10 mg 02/20/20 09:57 Geodon IM Q6H PRN Agitation Nutrition/Malnutrition Assess - Dietary Evaluation Nutrition/Malnutrition Findings: Nutrition Notes Start: 02/21/20 09:47 Freq: Status: Active Protocol: Document 02/21/20 09:47 LC (Rec: 02/21/20 09:56 LC SRW- [email or web address]) Nutrition Notes Need for Assessment generated from: MD Order Initial or Follow up Assessment Current Diagnosis Hypertension Other Pertinent Diagnosis Debility, Dementia, Depression , Stage 2 sacral ulcer Current Diet Regular + Ensure Enlive daily Labs/Tests reviewed Pertinent Medications reviewed Height 6 ft 2 in Weight 72.8 kg [place] Body Weight (kg) 86.36 BMI 20.6 Weight Status Underweight Subjective/Other Information RD consulted for poor oral intake; MD ordered ONS daily. Pt admitted for psychiatric stabilization. Per records, pt s/p fall three wks ago and has been c/o (L) hip pain. He has been off all medications for nearly three months and has had suicidal ideations. Per RN note, pt combative at times and has not been eating much; one meal intake documented at 25%. 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 No Is Patient Ambulatory and/or Out of Bed No REE-([facility]-confined to bed) 1827.912 Kcal/Kg value to use for calculation 30 Approximate Energy Requirements Using 2184 kcal/Kg Calculation Used for Recommendations Kcal/kg Additional Notes Pro needs 1.25-1.5g/k- 109g/day Fluid needs 1ml/kcal Nutrition Intervention Change Diet Order: Continue current diet order Add Supplement/Snack (indicate name/kcal Ensure Enlive TID /protein ) Provides kCal: 1,050 Provides Protein (gm) 60 Goal #1 PO intake of meals plus ONS to meet at least 75% nutrient needs Goal #2 Wt maintenance and/or gain Goal #3 Wound healing Anticipated Discharge Needs: Continue ONS 2-3 times daily for wt maintenance and wound healing purposes Follow-Up By: 02/26/20 Additional Comments F/U: intakes (meals/ONS), wt
[2020-02-24] MEDS: traZODone 50 MG TAB PO SCH (22:23)
[2020-02-25 05:50] LABS: INR 1.09 (0.87-1.13)
--- NOTE | 2020-02-25 07:22 | Progress Note ---
Subjective Date of service: 02/25/20 Principal diagnosis: Major Depression w Psychotic Features Subjective Comment: Nurse Note: Patient requested to lay down this evening. He is being positioned to keep pressure from the wound on his coccyx area. He dozed off and on throughout the evening. Patient's affect is sad and mood continues to be depressed. He was medication compliant and tried to assist staff with his ADL care. Will continue to monitor patient for safety. PSYCH HPI Patient seen this AM, flat affect, no behavioral disturbances, easily redirected, awake and alert but keeps pretty much to self, difficulty hearing but responds to prompts. Reports just being okay, no other complaints Reason for continued inpatient treatment: Pt baseline unknown, though family member reports poor cognitive function, pt able to eat food by self, denies SI, HI, surprised reaction to question prompt if he wanted to kill self. MENTAL STATUS EXAMINATION General Appearance and Behavior: Age appropriate, poor/fair/good hygiene, wearing appropriate clothes, lying in bed, good/poor eye contact, cooperative/uncooperative polite/irritable with questioning. Cooperation: Participating/engaged, Withdrawn, Isolative, Threatening, Cooperative, Hostile and Guarded Psychomotor Behavior: Psychomotor agitation, psychomotor retardation, unremarkable and within normal limits Mood: "not that bad" Affect and affective range: flat Thought Process: Preservative Thought Content: na Speech: soft volume, stutter, paucity of speech Intellectual Functioning: Fair Suicidal Ideation: Denies SI Homicidal Ideation: Denies HI Impulse Control: Impaired Insight and Judgment: Limited insight and judgment Memory: impaired Attention: Normal Orientation: Alert, with intermittent confusion Diagnoses: - Patient Problems (1) Major neurocognitive disorder, due to another medical condition, with behavioral disturbance, severe Current Visit: Yes Status: Acute (2) MDD (major depressive disorder) Current Visit: Yes Status: Acute Treatment Plan Continue current medications Patient will be admitted for inpatient psychiatric evaluation, medication adjustment and close monitoring The patient's behavior, mood, sleep and appetite will be closely monitored. Patient will be enrolled in individual and group therapeutic sessions and encouraged to attend. Patient will be provided with a safe and structured environment. Patient's physical health needs will be addressed by the Hospitalist. Hospitalist Consulted Labs including CBC, CMP, Lipid profile and Hemoglobin A1C ordered Social Assessment will be completed and the Picture Copyist will work with patient and family to ensure a suitable and safe disposition Medication adjustment will be made as clinically indicated Usual Wellness Moravian/Preservation: - Start Trazodone 50 mg po QHS & 50 mg po QHS PRN between 10 PM & 2 AM for insomnia - Start Melatonin 5 mg po QHS to promote circadian rhythm - Start [place]-3 for brain health, reduce impulsivity, and as adjunctive treatment for mood disorder, continue upon discharge given overall benefits. - Start B1 prophylaxis with 200 mg po for 5 days The patient agreed on the treatment plan, understood the risk, benefit, alternative treatment, potential consequence of no treatment, and gave informed consent. Initial Certification This is an acknowledgement statement that LIZZY MOORE is a 80 year old Male who requires inpatient psychiatric admission for treatment which could reasonably be expected to improve the patient's condition for HIS MENTAL HEALTH Estimated period of time patient will need to remain in the hospital: [1] Plan for post-hospital care: [ Outpt] Assessment and Plan - Patient Problems (1) Major neurocognitive disorder, due to another medical condition, with behavioral disturbance, severe Current Visit: Yes Status: Acute (2) MDD (major depressive disorder) Current Visit: Yes Status: Acute Medications and Allergies Allergies Allergy/AdvReac Type Severity Reaction Status Date / Time No Known Allergies Allergy Verified 02/18/20 10:53 Home Medications Medication Instructions Recorded Confirmed Last Taken Type cephALEXin [Keflex] 500 mg PO Q12HR #14 cap 02/18/20 02/20/20 Unknown Rx Potassium Chloride 20 meq PO BID #30 packet 02/20/20 02/20/20 Unknown Rx ARIPiprazole [Aripiprazole] 10 mg PO DAILY 02/21/20 02/21/20 Unknown History Acetaminophen/Codeine [Tylenol 1 tab PO Q4H PRN 02/21/20 02/21/20 Unknown History /Codeine # 3 tab] Cyclobenzaprine [Flexeril 10 MG 5 mg PO Q8H PRN 02/21/20 02/21/20 Unknown History TAB] Escitalopram [Lexapro] 10 mg PO DAILY 02/21/20 02/21/20 Unknown History Losartan Potassium 100 mg PO DAILY 02/21/20 02/21/20 Unknown History Meloxicam 15 mg PO DAILY 02/21/20 02/21/20 Unknown History Metoprolol [Lopressor TAB] 50 mg PO BID 02/21/20 02/21/20 Unknown History PARoxetine [Paxil] 20 mg PO QHS 02/21/20 02/21/20 Unknown History Warfarin Sodium 4 mg PO DAILY 02/21/20 02/21/20 Unknown History buPROPion HCL [Bupropion HCl Sr] 150 mg PO DAILY 02/21/20 02/21/20 Unknown History hydroCHLOROthiazide 12.5 mg PO DAILY 02/21/20 02/21/20 Unknown History [Hydrochlorothiazide] Active Meds: Active Medications Amlodipine Besylate (Amlodipine) 5 mg PO QDAY COUNT INCLUDES THE [facility] Last Admin: 02/24/20 11:07 Dose: 5 mg Documented by: Apixaban (Eliquis) 2.5 mg PO Q12HR COUNT INCLUDES THE [facility]; Protocol Last Admin: 02/24/20 22:23 Dose: 2.5 mg Documented by: Aripiprazole (Aripiprazole) 5 mg PO QDAY COUNT INCLUDES THE [facility] Last Admin: 02/24/20 11:04 Dose: 5 mg Documented by: Escitalopram Oxalate (Lexapro) 5 mg PO QDAY COUNT INCLUDES THE [facility] Last Admin: 02/24/20 11:04 Dose: 5 mg Documented by: Melatonin (Melatonin) 5 mg PO QHS PRN PRN Reason: Sleep Trazodone HCl (Desyrel) 50 mg PO QHS COUNT INCLUDES THE [facility] Last Admin: 02/24/20 22:23 Dose: 50 mg Documented by: Ziprasidone (Geodon) 10 mg IM Q6H PRN PRN Reason: Agitation Results - Results Labs/Vitals: Laboratory Last Values WBC 6.9 K/mm3 (4.5-11.0) 02/21/20 09:41 RBC 4.40 M/mm3 (3.65-5.03) 02/21/20 09:41 Hgb 13.9 gm/dl (11.8-15.2) 02/21/20 09:41 Hct 38.1 % (35.5-45.6) 02/21/20 09:41 MCV 87 fl (84-94) 02/21/20 09:41 MCH 32 pg (28-32) 02/21/20 09:41 MCHC 37 % (32-34) H 02/21/20 09:41 RDW 13.9 % (13.2-15.2) 02/21/20 09:41 Plt Count 239 K/mm3 (140-440) 02/21/20 09:41 Lymph % (Auto) 18.8 % (13.4-35.0) 02/21/20 09:41 [place] % (Auto) 7.1 % (0.0-7.3) 02/21/20 09:41 Eos % (Auto) 0.4 % (0.0-4.3) 02/21/20 09:41 Baso % (Auto) 0.6 % (0.0-1.8) 02/21/20 09:41 Lymph # 1.3 K/mm3 (1.2-5.4) 02/21/20 09:41 [place] # 0.5 K/mm3 (0.0-0.8) 02/21/20 09:41 Eos # 0.0 K/mm3 (0.0-0.4) 02/21/20 09:41 Baso # 0.0 K/mm3 (0.0-0.1) 02/21/20 09:41 Seg Neutrophils % 73.1 % (40.0-70.0) H 02/21/20 09:41 Seg Neutrophils # 5.0 K/mm3 (1.8-7.7) 02/21/20 09:41 PT 13.9 Sec. (12.2-14.9) 02/25/20 05:24 INR 1.09 (0.87-1.13) 02/25/20 05:24 Sodium 143 mmol/L (137-145) 02/21/20 09:41 Potassium 3.8 mmol/L (3.6-5.0) 02/21/20 09:41 Chloride 101.9 mmol/L (98-107) 02/21/20 09:41 Carbon Dioxide 29 mmol/L (22-30) 02/21/20 09:41 Anion Gap 16 mmol/L 02/21/20 09:41 BUN 17 mg/dL (9-20) 02/21/20 09:41 Creatinine 0.6 mg/dL (0.8-1.5) L 02/21/20 09:41 Estimated GFR > 60 ml/min 02/21/20 09:41 BUN/Creatinine Ratio 28 % 02/21/20 09:41 Glucose 129 mg/dL (75-100) H 02/21/20 09:41 POC Glucose 116 (70-105) H 02/21/20 07:08 Hemoglobin A1c 5.6 % (4-6) 02/21/20 09:41 Calcium 9.0 mg/dL (8.4-10.2) 02/21/20 09:41 Total Bilirubin 1.60 mg/dL (0.1-1.2) H 02/21/20 09:41 AST 41 units/L (5-40) H 02/21/20 09:41 ALT 23 units/L (7-56) 02/21/20 09:41 Alkaline Phosphatase 75 units/L (35-129) 02/21/20 09:41 Total Protein 5.9 g/dL (6.3-8.2) L 02/21/20 09:41 Albumin 3.4 g/dL (3.9-5) L 02/21/20 09:41 Albumin/Globulin Ratio 1.4 % 02/21/20 09:41 Triglycerides 100 mg/dL (2-149) 02/21/20 09:41 Cholesterol 122 mg/dL (50-199) 02/21/20 09:41 LDL Cholesterol Direct 74 mg/dL (50-130) 02/21/20 09:41 HDL Cholesterol 35 mg/dL (40-59) L 02/21/20 09:41 Cholesterol/HDL Ratio 3.48 % 02/21/20 09:41 TSH 2.440 mlU/mL (0.270-4.200) 02/21/20 09:41 Last Vital Signs Temp 97.5 F L 02/24/20 22:00 Pulse 88 02/24/20 22:00 Resp 16 02/24/20 22:00 BP 152/79 02/24/20 19:24 Pulse Ox 98 02/24/20 22:00
[2020-02-25] MEDS: ESCITALOPRAM 10 MG TAB PO SCH (09:59)
[2020-02-25] MEDS: ARIPiprazole 5 MG TAB PO SCH (09:59)
[2020-02-25] MEDS: amLODIPine 5 MG TAB PO SCH (10:00)
[2020-02-25] MEDS: APIXABAN 2.5 MG TAB PO SCH ×2 (10:00→21:28)
[2020-02-25] MEDS: MELATONIN 5 MG TAB PO PRN (21:28)
[2020-02-25] MEDS: traZODone 50 MG TAB PO SCH (21:28)
--- NOTE | 2020-02-25 22:44 | Progress Note ---
Assessment and Plan - Patient Problems (1) HTN (hypertension) Current Visit: Yes Status: Acute Qualifiers: Hypertension type: essential hypertension Qualified Code(s): I10 - Essential (primary) hypertension Plan to address problem: Continue medical management, monitor blood pressure every shift (2) Atrial fibrillation Current Visit: Yes Status: Acute Qualifiers: Atrial fibrillation type: unspecified chronic Qualified Code(s): I48.20 - Chronic atrial fibrillation, unspecified; I48.2 - Chronic atrial fibrillation Plan to address problem: Resume therapeutic anticoagulation with Eliquis. Supportive care. History Interval history: 80 YO Male with HTN, Debility, Dementia admitted to [facility] for Psychiatric stabilization. Patient seen and evaluated in his room. Patient appears comfortable. Patient has what appears to be chronic cognitive slowing. Patient is bedbound and incontinent of bladder. No reported nursing events. Patient initiated on Eliquis therapy. Coumadin discontinued. Hospitalist Physical - Constitutional Vitals: Temp Pulse Resp BP Pulse Ox 98.7 F 84 20 127/82 97 02/25/20 19:39 02/25/20 19:39 02/25/20 19:39 02/25/20 19:39 02/25/20 19:39 General appearance: Present: no acute distress, cachectic - EENT Eyes: Present: PERRL ENT: hearing intact - Neck Neck: Present: supple - Respiratory Respiratory: bilateral: CTA - Cardiovascular Rhythm: irregularly irregular - Extremities Extremities: no ischemia Peripheral Pulses: within normal limits - Abdominal General gastrointestinal: soft, non-tender, non-distended - Integumentary Integumentary: Present: clear, dry - Psychiatric Psychiatric: cooperative - Neurologic Neurologic: CNII-XII intact Results - Labs CBC & Chem 7: 02/21/20 09:41 02/21/20 09:41 Labs: Laboratory Last Values WBC 6.9 K/mm3 (4.5-11.0) 02/21/20 09:41 RBC 4.40 M/mm3 (3.65-5.03) 02/21/20 09:41 Hgb 13.9 gm/dl (11.8-15.2) 02/21/20 09:41 Hct 38.1 % (35.5-45.6) 02/21/20 09:41 MCV 87 fl (84-94) 02/21/20 09:41 MCH 32 pg (28-32) 02/21/20 09:41 MCHC 37 % (32-34) H 02/21/20 09:41 RDW 13.9 % (13.2-15.2) 02/21/20 09:41 Plt Count 239 K/mm3 (140-440) 02/21/20 09:41 Lymph % (Auto) 18.8 % (13.4-35.0) 02/21/20 09:41 [place] % (Auto) 7.1 % (0.0-7.3) 02/21/20 09:41 Eos % (Auto) 0.4 % (0.0-4.3) 02/21/20 09:41 Baso % (Auto) 0.6 % (0.0-1.8) 02/21/20 09:41 Lymph # 1.3 K/mm3 (1.2-5.4) 02/21/20 09:41 [place] # 0.5 K/mm3 (0.0-0.8) 02/21/20 09:41 Eos # 0.0 K/mm3 (0.0-0.4) 02/21/20 09:41 Baso # 0.0 K/mm3 (0.0-0.1) 02/21/20 09:41 Seg Neutrophils % 73.1 % (40.0-70.0) H 02/21/20 09:41 Seg Neutrophils # 5.0 K/mm3 (1.8-7.7) 02/21/20 09:41 PT 13.9 Sec. (12.2-14.9) 02/25/20 05:24 INR 1.09 (0.87-1.13) 02/25/20 05:24 Sodium 143 mmol/L (137-145) 02/21/20 09:41 Potassium 3.8 mmol/L (3.6-5.0) 02/21/20 09:41 Chloride 101.9 mmol/L (98-107) 02/21/20 09:41 Carbon Dioxide 29 mmol/L (22-30) 02/21/20 09:41 Anion Gap 16 mmol/L 02/21/20 09:41 BUN 17 mg/dL (9-20) 02/21/20 09:41 Creatinine 0.6 mg/dL (0.8-1.5) L 07/09/20 09:41 Estimated GFR > 60 ml/min 02/21/20 09:41 BUN/Creatinine Ratio 28 % 02/21/20 09:41 Glucose 129 mg/dL (75-100) H 02/21/20 09:41 POC Glucose 116 (70-105) H 02/21/20 07:08 Hemoglobin A1c 5.6 % (4-6) 02/21/20 09:41 Calcium 9.0 mg/dL (8.4-10.2) 02/21/20 09:41 Total Bilirubin 1.60 mg/dL (0.1-1.2) H 02/21/20 09:41 AST 41 units/L (5-40) H 02/21/20 09:41 ALT 23 units/L (7-56) 02/21/20 09:41 Alkaline Phosphatase 75 units/L (35-129) 02/21/20 09:41 Total Protein 5.9 g/dL (6.3-8.2) L 02/21/20 09:41 Albumin 3.4 g/dL (3.9-5) L 02/21/20 09:41 Albumin/Globulin Ratio 1.4 % 02/21/20 09:41 Triglycerides 100 mg/dL (2-149) 02/21/20 09:41 Cholesterol 122 mg/dL (50-199) 02/21/20 09:41 LDL Cholesterol Direct 74 mg/dL (50-130) 02/21/20 09:41 HDL Cholesterol 35 mg/dL (40-59) L 02/21/20 09:41 Cholesterol/HDL Ratio 3.48 % 02/21/20 09:41 TSH 2.440 mlU/mL (0.270-4.200) 02/21/20 09:41 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/IV: 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 Medications - Current Medications Current Medications: Generic Name Dose Route Start Last Admin Trade Name Freq PRN Reason Stop Dose Admin Amlodipine Besylate 5 mg 02/21/20 10:00 02/25/20 10:00 Amlodipine PO 5 mg QDAY CONSTANCE Administration Apixaban 2.5 mg 02/24/20 11:01 02/25/20 21:28 Eliquis PO 2.5 mg Q12HR CONSTANCE Administration Protocol Aripiprazole 5 mg 02/23/20 10:00 02/25/20 09:59 Aripiprazole PO 5 mg QDAY CONSTANCE Administration Escitalopram Oxalate 5 mg 02/21/20 11:00 02/25/20 09:59 Lexapro PO 5 mg QDAY CONSTANCE Administration Melatonin 5 mg 02/20/20 22:00 02/25/20 21:28 Melatonin PO 5 mg QHS PRN Administration Sleep Trazodone HCl 50 mg 02/20/20 22:00 02/25/20 21:28 Desyrel PO 50 mg QHS CONSTANCE Administration Ziprasidone 10 mg 02/20/20 09:57 Geodon IM Q6H PRN Agitation Nutrition/Malnutrition Assess - Dietary Evaluation Nutrition/Malnutrition Findings: Nutrition Notes Start: 02/21/20 09:47 Freq: Status: Active Protocol: Document 02/21/20 09:47 LC (Rec: 02/21/20 09:56 LC SRW- [email or web address]) Nutrition Notes Need for Assessment generated from: MD Order Initial or Follow up Assessment Current Diagnosis Hypertension Other Pertinent Diagnosis Debility, Dementia, Depression , Stage 2 sacral ulcer Current Diet Regular + Ensure Enlive daily Labs/Tests reviewed Pertinent Medications reviewed Height 6 ft 2 in Weight 72.8 kg [place] Body Weight (kg) 86.36 BMI 20.6 Weight Status Underweight Subjective/Other Information RD consulted for poor oral intake; MD ordered ONS daily. Pt admitted for psychiatric stabilization. Per records, pt s/p fall three wks ago and has been c/o (L) hip pain. He has been off all medications for nearly three months and has had suicidal ideations. Per RN note, pt combative at times and has not been eating much; one meal intake documented at 25%. 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 Is Patient Ambulatory and/or Out of Bed No REE-([facility]-confined to bed) 1827.912 Kcal/Kg value to use for calculation 30 Approximate Energy Requirements Using 2184 kcal/Kg Calculation Used for Recommendations Kcal/kg Additional Notes Pro needs 1.25-1.5g/k- 109g/day Fluid needs 1ml/kcal Nutrition Intervention Change Diet Order: Continue current diet order Add Supplement/Snack (indicate name/kcal Ensure Enlive TID /protein ) Provides kCal: 1,050 Provides Protein (gm) 60 Goal #1 PO intake of meals plus ONS to meet at least 75% nutrient needs Goal #2 Wt maintenance and/or gain Goal #3 Wound healing Anticipated Discharge Needs: Continue ONS 2-3 times daily for wt maintenance and wound healing purposes Follow-Up By: 02/26/20 Additional Comments F/U: intakes (meals/ONS), wt
--- NOTE | 2020-02-26 07:31 | Progress Note ---
Subjective Date of service: 02/26/20 Principal diagnosis: Major Depression w Psychotic Features Subjective Comment: Nurse Note: pt spent his evening in activity room sitting quietly in shalom chair, alert and oriented to self, calm and cooperative, medication compliant, refused snack, medication given crushed in apple sauce, flat affect, mood is depressed, no behavioral issue, no distress noted, will continue to monitor for safety. PSYCH HPI Patient in chair, mumbling words, point to his hip area. reviewed of patient records showed he had a a CT and xray of hips that was negative for acute fractures. Pt is demented hence confused most times. Reason for continued inpatient treatment: Pt baseline unknown, though family member reports poor cognitive function, pt needing total care, sometimes eat by himself. MENTAL STATUS EXAMINATION General Appearance and Behavior: Age appropriate, poor/fair/good hygiene, wearing appropriate clothes, lying in bed, good/poor eye contact, cooperative /uncooperative polite/irritable with questioning. Cooperation: Participating/engaged, Withdrawn, Isolative, Threatening, Cooperative, Hostile and Guarded Psychomotor Behavior: Psychomotor agitation, psychomotor retardation, unremarkable and within normal limits Mood: "not that bad" Affect and affective range: flat Thought Process: Preservative Thought Content: na Speech: soft volume, stutter, paucity of speech Intellectual Functioning: Fair Suicidal Ideation: Denies SI Homicidal Ideation: Denies HI Impulse Control: Impaired Insight and Judgment: Limited insight and judgment Memory: impaired Attention: Normal Orientation: Alert, with intermittent confusion Diagnoses: - Patient Problems (1) Major neurocognitive disorder, due to another medical condition, with behavioral disturbance, severe Current Visit: Yes Status: Acute (2) MDD (major depressive disorder) Current Visit: Yes Status: Acute Treatment Plan Continue current medications Patient will be admitted for inpatient psychiatric evaluation, medication adjustment and close monitoring The patient's behavior, mood, sleep and appetite will be closely monitored. Patient will be enrolled in individual and group therapeutic sessions and encou raged to attend. Patient will be provided with a safe and structured environment. Patient's physical health needs will be addressed by the Hospitalist. Hospitalist Consulted Labs including CBC, CMP, Lipid profile and Hemoglobin A1C ordered Social Assessment will be completed and the [employer] will work with patient and family to ensure a suitable and safe disposition Medication adjustment will be made as clinically indicated Usual Wellness Anabaptism/Preservation: - Start Trazodone 50 mg po QHS & 50 mg po QHS PRN between 10 PM & 2 AM for insomnia - Start Melatonin 5 mg po QHS to promote circadian rhythm - Start [place]-3 for brain health, reduce impulsivity, and as adjunctive treatment for mood disorder, continue upon discharge given overall benefits. - Start B1 prophylaxis with 200 mg po for 5 days The patient agreed on the treatment plan, understood the risk, benefit, alternative treatment, potential consequence of no treatment, and gave informed consent. Initial Certification This is an acknowledgement statement that LIZZY MOORE is a 80 year old Male who requires inpatient psychiatric admission for treatment which could reasonably be expected to improve the patient's condition for HIS MENTAL HEALTH Estimated period of time patient will need to remain in the hospital: [1] Plan for post-hospital care: [ Outpt] Assessment and Plan - Patient Problems (1) Major neurocognitive disorder, due to another medical condition, with behavioral disturbance, severe Current Visit: Yes Status: Acute (2) MDD (major depressive disorder) Current Visit: Yes Status: Acute Medications and Allergies Allergies Allergy/AdvReac Type Severity Reaction Status Date / Time No Known Allergies Allergy Verified 02/18/20 10:53 Home Medications Medication Instructions Recorded Confirmed Last Taken Type cephALEXin [Keflex] 500 mg PO Q12HR #14 cap 02/18/20 02/20/20 Unknown Rx Potassium Chloride 20 meq PO BID #30 packet 02/20/20 02/20/20 Unknown Rx ARIPiprazole [Aripiprazole] 10 mg PO DAILY 02/21/20 02/21/20 Unknown History Acetaminophen/Codeine [Tylenol 1 tab PO Q4H PRN 02/21/20 02/21/20 Unknown History /Codeine # 3 tab] Cyclobenzaprine [Flexeril 10 MG 5 mg PO Q8H PRN 02/21/20 02/21/20 Unknown History TAB] Escitalopram [Lexapro] 10 mg PO DAILY 02/21/20 02/21/20 Unknown History Losartan Potassium 100 mg PO DAILY 02/21/20 02/21/20 Unknown History Meloxicam 15 mg PO DAILY 02/21/20 02/21/20 Unknown History Metoprolol [Lopressor TAB] 50 mg PO BID 02/21/20 02/21/20 Unknown History PARoxetine [Paxil] 20 mg PO QHS 02/21/20 02/21/20 Unknown History Warfarin Sodium 4 mg PO DAILY 02/21/20 02/21/20 Unknown History buPROPion HCL [Bupropion HCl Sr] 150 mg PO DAILY 02/21/20 02/21/20 Unknown History hydroCHLOROthiazide 12.5 mg PO DAILY 02/21/20 02/21/20 Unknown History [Hydrochlorothiazide] Active Meds: Active Medications Amlodipine Besylate (Amlodipine) 5 mg PO QDAY [facility] Last Admin: 02/25/20 10:00 Dose: 5 mg Documented by: Apixaban (Eliquis) 2.5 mg PO Q12HR [facility]; Protocol Last Admin: 02/25/20 21:28 Dose: 2.5 mg Documented by: Aripiprazole (Aripiprazole) 5 mg PO QDAY [facility] Last Admin: 02/25/20 09:59 Dose: 5 mg Documented by: Escitalopram Oxalate (Lexapro) 5 mg PO QDAY [facility] Last Admin: 02/25/20 09:59 Dose: 5 mg Documented by: Melatonin (Melatonin) 5 mg PO QHS PRN PRN Reason: Sleep Last Admin: 02/25/20 21:28 Dose: 5 mg Documented by: Trazodone HCl (Desyrel) 50 mg PO QHS [facility] Last Admin: 02/25/20 21:28 Dose: 50 mg Documented by: Ziprasidone (Geodon) 10 mg IM Q6H PRN PRN Reason: Agitation Results - Results Labs/Vitals: Laboratory Last Values WBC 6.9 K/mm3 (4.5-11.0) 02/21/20 09:41 RBC 4.40 M/mm3 (3.65-5.03) 02/21/20 09:41 Hgb 13.9 gm/dl (11.8-15.2) 02/21/20 09:41 Hct 38.1 % (35.5-45.6) 02/21/20 09:41 MCV 87 fl (84-94) 02/21/20 09:41 MCH 32 pg (28-32) 02/21/20 09:41 MCHC 37 % (32-34) H 02/21/20 09:41 RDW 13.9 % (13.2-15.2) 02/21/20 09:41 Plt Count 239 K/mm3 (140-440) 02/21/20 09:41 Lymph % (Auto) 18.8 % (13.4-35.0) 02/21/20 09:41 [place] % (Auto) 7.1 % (0.0-7.3) 02/21/20 09:41 Eos % (Auto) 0.4 % (0.0-4.3) 02/21/20 09:41 Baso % (Auto) 0.6 % (0.0-1.8) 02/21/20 09:41 Lymph # 1.3 K/mm3 (1.2-5.4) 02/21/20 09:41 [place] # 0.5 K/mm3 (0.0-0.8) 02/21/20 09:41 Eos # 0.0 K/mm3 (0.0-0.4) 02/21/20 09:41 Baso # 0.0 K/mm3 (0.0-0.1) 02/21/20 09:41 Seg Neutrophils % 73.1 % (40.0-70.0) H 02/21/20 09:41 Seg Neutrophils # 5.0 K/mm3 (1.8-7.7) 02/21/20 09:41 PT 13.9 Sec. (12.2-14.9) 02/25/20 05:24 INR 1.09 (0.87-1.13) 02/25/20 05:24 Sodium 143 mmol/L (137-145) 02/21/20 09:41 Potassium 3.8 mmol/L (3.6-5.0) 02/21/20 09:41 Chloride 101.9 mmol/L (98-107) 02/21/20 09:41 Carbon Dioxide 29 mmol/L (22-30) 02/21/20 09:41 Anion Gap 16 mmol/L 02/21/20 09:41 BUN 17 mg/dL (9-20) 02/21/20 09:41 Creatinine 0.6 mg/dL (0.8-1.5) L 02/21/20 09:41 Estimated GFR > 60 ml/min 02/21/20 09:41 BUN/Creatinine Ratio 28 % 02/21/20 09:41 Glucose 129 mg/dL (75-100) H 02/21/20 09:41 POC Glucose 116 (70-105) H 02/21/20 07:08 Hemoglobin A1c 5.6 % (4-6) 02/21/20 09:41 Calcium 9.0 mg/dL (8.4-10.2) 02/21/20 09:41 Total Bilirubin 1.60 mg/dL (0.1-1.2) H 02/21/20 09:41 AST 41 units/L (5-40) H 02/21/20 09:41 ALT 23 units/L (7-56) 02/21/20 09:41 Alkaline Phosphatase 75 units/L (35-129) 02/21/20 09:41 Total Protein 5.9 g/dL (6.3-8.2) L 02/21/20 09:41 Albumin 3.4 g/dL (3.9-5) L 02/21/20 09:41 Albumin/Globulin Ratio 1.4 % 02/21/20 09:41 Triglycerides 100 mg/dL (2-149) 02/21/20 09:41 Cholesterol 122 mg/dL (50-199) 02/21/20 09:41 LDL Cholesterol Direct 74 mg/dL (50-130) 02/21/20 09:41 HDL Cholesterol 35 mg/dL (40-59) L 02/21/20 09:41 Cholesterol/HDL Ratio 3.48 % 02/21/20 09:41 TSH 2.440 mlU/mL (0.270-4.200) 02/21/20 09:41 Last Vital Signs Temp 98.7 F 02/25/20 22:00 Pulse 91 H 02/25/20 22:00 Resp 20 02/25/20 22:00 BP 127/82 02/25/20 22:00 Pulse Ox 97 02/25/20 22:00
[2020-02-26 10:04] LABS: INR 1.13 (0.87-1.13)
[2020-02-26] MEDS: ESCITALOPRAM 10 MG TAB PO SCH (12:36)
[2020-02-26] MEDS: ARIPiprazole 5 MG TAB PO SCH (12:36)
[2020-02-26] MEDS: amLODIPine 5 MG TAB PO SCH (12:38)
[2020-02-26] MEDS: APIXABAN 2.5 MG TAB PO SCH ×2 (12:39→22:00)
[2020-02-26] MEDS: traZODone 50 MG TAB PO SCH (22:00)
[2020-02-27 06:26] LABS: INR 1.21 (0.87-1.13)
--- NOTE | 2020-02-27 07:22 | Progress Note ---
Subjective Date of service: 02/27/20 Principal diagnosis: Major Depression w Psychotic Features Subjective Comment: Nurse Note: pt spent his evening in activity room sitting quietly in shalom chair, alert and oriented to self, calm and cooperative, medication compliant, refused snack, medication given crushed in apple sauce, flat affect, mood is depressed, no behavioral issue, no distress noted, will continue to monitor for safety. PSYCH HPI Patient in chair, mumbling words, but eating by self today and more alert compared to previous. Words are incoherent and difficult to comprehend. Not complaints reports by nurses. Reason for continued inpatient treatment: Continue to observe for mood stability and behavioral disturbances. Plan for discharge with hospice social worker. MENTAL STATUS EXAMINATION General Appearance and Behavior: Age appropriate, poor/fair/good hygiene, wearing appropriate clothes, lying in bed, good/poor eye contact, cooperative/uncooperative polite/irritable with questioning. Cooperation: Participating/engaged, Withdrawn, Isolative, Threatening, Cooperative, Hostile and Guarded Psychomotor Behavior: Psychomotor agitation, psychomotor retardation, unremarkable and within normal limits Mood: n/a Affect and affective range: "looking good" Thought Process: Preservative Thought Content: na Speech: soft volume, stutter, paucity of speech Intellectual Functioning: Fair Suicidal Ideation: Denies SI Homicidal Ideation: Denies HI Impulse Control: Impaired Insight and Judgment: Limited insight and judgment Memory: impaired Attention: Normal Orientation: Alert, with intermittent confusion Diagnoses: - Patient Problems (1) Major neurocognitive disorder, due to another medical condition, with behavioral disturbance, severe Current Visit: Yes Status: Acute (2) MDD (major depressive disorder) Current Visit: Yes Status: Acute Treatment Plan Continue current medications Patient will be admitted for inpatient psychiatric evaluation, medication adjustment and close monitoring The patient's behavior, mood, sleep and appetite will be closely monitored. Patient will be enrolled in individual and group therapeutic sessions and encouraged to attend. Patient will be provided with a safe and structured environment. Patient's physical health needs will be addressed by the Hospitalist. Hospitalist Consulted Labs including CBC, CMP, Lipid profile and Hemoglobin A1C ordered Social Assessment will be completed and the [employer] will work with patient and family to ensure a suitable and safe disposition Medication adjustment will be made as clinically indicated Usual Wellness Mandaeism/Preservation: - Start Trazodone 50 mg po QHS & 50 mg po QHS PRN between 10 PM & 2 AM for insomnia - Start Melatonin 5 mg po QHS to promote circadian rhythm - Start [place]-3 for brain health, reduce impulsivity, and as adjunctive treatment for mood disorder, continue upon discharge given overall benefits. - Start B1 prophylaxis with 200 mg po for 5 days The patient agreed on the treatment plan, understood the risk, benefit, alternative treatment, potential consequence of no treatment, and gave informed consent. Initial Certification This is an acknowledgement statement that LIZZY MOORE is a 80 year old Male who requires inpatient psychiatric admission for treatment which could reasonably be expected to improve the patient's condition for HIS MENTAL HEALTH Estimated period of time patient will need to remain in the hospital: [1] Plan for post-hospital care: [ Outpt] Assessment and Plan - Patient Problems (1) Major neurocognitive disorder, due to another medical condition, with behavioral disturbance, severe Current Visit: Yes Status: Acute (2) MDD (major depressive disorder) Current Visit: Yes Status: Acute Medications and Allergies Allergies Allergy/AdvReac Type Severity Reaction Status Date / Time No Known Allergies Allergy Verified 02/18/20 10:53 Home Medications Medication Instructions Recorded Confirmed Last Taken Type cephALEXin [Keflex] 500 mg PO Q12HR #14 cap 02/18/20 02/20/20 Unknown Rx Potassium Chloride 20 meq PO BID #30 packet 02/20/20 02/20/20 Unknown Rx ARIPiprazole [Aripiprazole] 10 mg PO DAILY 02/21/20 02/21/20 Unknown History Acetaminophen/Codeine [Tylenol 1 tab PO Q4H PRN 02/21/20 02/21/20 Unknown History /Codeine # 3 tab] Cyclobenzaprine [Flexeril 10 MG 5 mg PO Q8H PRN 02/21/20 02/21/20 Unknown History TAB] Escitalopram [Lexapro] 10 mg PO DAILY 02/21/20 02/21/20 Unknown History Losartan Potassium 100 mg PO DAILY 02/21/20 02/21/20 Unknown History Meloxicam 15 mg PO DAILY 02/21/20 02/21/20 Unknown History Metoprolol [Lopressor TAB] 50 mg PO BID 02/21/20 02/21/20 Unknown History PARoxetine [Paxil] 20 mg PO QHS 02/21/20 02/21/20 Unknown History Warfarin Sodium 4 mg PO DAILY 02/21/20 02/21/20 Unknown History buPROPion HCL [Bupropion HCl Sr] 150 mg PO DAILY 02/21/20 02/21/20 Unknown History hydroCHLOROthiazide 12.5 mg PO DAILY 02/21/20 02/21/20 Unknown History [Hydrochlorothiazide] Active Meds: Active Medications Amlodipine Besylate (Amlodipine) 5 mg PO QDAY [facility] Last Admin: 02/26/20 12:38 Dose: 5 mg Documented by: Apixaban (Eliquis) 2.5 mg PO Q12HR [facility]; Protocol Last Admin: 02/26/20 22:00 Dose: 2.5 mg Documented by: Aripiprazole (Aripiprazole) 5 mg PO QDAY [facility] Last Admin: 02/26/20 12:36 Dose: 5 mg Documented by: Escitalopram Oxalate (Lexapro) 5 mg PO QDAY [facility] Last Admin: 02/26/20 12:36 Dose: 5 mg Documented by: Melatonin (Melatonin) 5 mg PO QHS PRN PRN Reason: Sleep Last Admin: 02/25/20 21:28 Dose: 5 mg Documented by: Trazodone HCl (Desyrel) 50 mg PO QHS [facility] Last Admin: 02/26/20 22:00 Dose: 50 mg Documented by: Ziprasidone (Geodon) 10 mg IM Q6H PRN PRN Reason: Agitation Results - Results Labs/Vitals: Laboratory Last Values WBC 6.9 K/mm3 (4.5-11.0) 02/21/20 09:41 RBC 4.40 M/mm3 (3.65-5.03) 02/21/20 09:41 Hgb 13.9 gm/dl (11.8-15.2) 02/21/20 09:41 Hct 38.1 % (35.5-45.6) 02/21/20 09:41 MCV 87 fl (84-94) 02/21/20 09:41 MCH 32 pg (28-32) 02/21/20 09:41 MCHC 37 % (32-34) H 02/21/20 09:41 RDW 13.9 % (13.2-15.2) 02/21/20 09:41 Plt Count 239 K/mm3 (140-440) 02/21/20 09:41 Lymph % (Auto) 18.8 % (13.4-35.0) 02/21/20 09:41 [place] % (Auto) 7.1 % (0.0-7.3) 02/21/20 09:41 Eos % (Auto) 0.4 % (0.0-4.3) 02/21/20 09:41 Baso % (Auto) 0.6 % (0.0-1.8) 02/21/20 09:41 Lymph # 1.3 K/mm3 (1.2-5.4) 02/21/20 09:41 [place] # 0.5 K/mm3 (0.0-0.8) 02/21/20 09:41 Eos # 0.0 K/mm3 (0.0-0.4) 02/21/20 09:41 Baso # 0.0 K/mm3 (0.0-0.1) 02/21/20 09:41 Seg Neutrophils % 73.1 % (40.0-70.0) H 02/21/20 09:41 Seg Neutrophils # 5.0 K/mm3 (1.8-7.7) 02/21/20 09:41 PT 15.1 Sec. (12.2-14.9) H 02/27/20 05:23 INR 1.21 (0.87-1.13) H 02/27/20 05:23 Sodium 143 mmol/L (137-145) 02/21/20 09:41 Potassium 3.8 mmol/L (3.6-5.0) 02/21/20 09:41 Chloride 101.9 mmol/L (98-107) 02/21/20 09:41 Carbon Dioxide 29 mmol/L (22-30) 02/21/20 09:41 Anion Gap 16 mmol/L 02/21/20 09:41 BUN 17 mg/dL (9-20) 02/21/20 09:41 Creatinine 0.6 mg/dL (0.8-1.5) L 02/21/20 09:41 Estimated GFR > 60 ml/min 02/21/20 09:41 BUN/Creatinine Ratio 28 % 02/21/20 09:41 Glucose 129 mg/dL (75-100) H 02/21/20 09:41 POC Glucose 116 (70-105) H 02/21/20 07:08 Hemoglobin A1c 5.6 % (4-6) 02/21/20 09:41 Calcium 9.0 mg/dL (8.4-10.2) 02/21/20 09:41 Total Bilirubin 1.60 mg/dL (0.1-1.2) H 02/21/20 09:41 AST 41 units/L (5-40) H 02/21/20 09:41 ALT 23 units/L (7-56) 02/21/20 09:41 Alkaline Phosphatase 75 units/L (35-129) 02/21/20 09:41 Total Protein 5.9 g/dL (6.3-8.2) L 02/21/20 09:41 Albumin 3.4 g/dL (3.9-5) L 02/21/20 09:41 Albumin/Globulin Ratio 1.4 % 02/21/20 09:41 Triglycerides 100 mg/dL (2-149) 02/21/20 09:41 Cholesterol 122 mg/dL (50-199) 02/21/20 09:41 LDL Cholesterol Direct 74 mg/dL (50-130) 02/21/20 09:41 HDL Cholesterol 35 mg/dL (40-59) L 02/21/20 09:41 Cholesterol/HDL Ratio 3.48 % 02/21/20 09:41 TSH 2.440 mlU/mL (0.270-4.200) 02/21/20 09:41 Last Vital Signs Temp 98.0 F 02/26/20 19:31 Pulse 100 H 02/26/20 19:31 Resp 20 02/26/20 19:31 BP 113/74 02/26/20 19:31 Pulse Ox 95 02/26/20 19:31
[2020-02-27] MEDS: ESCITALOPRAM 10 MG TAB PO SCH (10:17)
[2020-02-27] MEDS: APIXABAN 2.5 MG TAB PO SCH ×2 (10:17→21:27)
[2020-02-27] MEDS: ARIPiprazole 5 MG TAB PO SCH (10:18)
[2020-02-27] MEDS: amLODIPine 5 MG TAB PO SCH (10:18)
[2020-02-27] MEDS: traZODone 50 MG TAB PO SCH (21:27)
[2020-02-27] MEDS: MELATONIN 5 MG TAB PO PRN (21:28)
[2020-02-28 06:14] LABS: INR 1.17 (0.87-1.13)
--- NOTE | 2020-02-28 07:25 | Progress Note ---
Subjective Date of service: 02/28/20 Principal diagnosis: Major Depression w Psychotic Features Subjective Comment: Nurse Note: pt is alert and oriented to person, spent his evening in his room, pt is calm and cooperative, mood is depressed, able to make needs known, had 25% of snack, medication given crushed in apple sauce, no complaints voiced, no distress noted, will continue to monitor for safety PSYCH HPI Patient seen this AM, says he his good, has same affect and no changes or complaints reported by nurse. Reason for continued inpatient treatment: Plan for discharge with social media content manager with social media content manager MENTAL STATUS EXAMINATION General Appearance and Behavior: Age appropriate, good hygiene, wearing appropriate clothes, lying in bed, cooperative polite with questioning. Cooperation: participating Psychomotor Behavior: unremarkable and within normal limits Mood: n/a Affect and affective range: flat Thought Process: Preservative Thought Content: na Speech: soft volume, stutter, paucity of speech Intellectual Functioning: Fair Suicidal Ideation: Denies SI Homicidal Ideation: Denies HI Impulse Control: Impaired Insight and Judgment: Limited insight and judgment Memory: impaired Attention: Normal Orientation: Alert, with intermittent confusion Diagnoses: - Patient Problems (1) Major neurocognitive disorder, due to another medical condition, with be havioral disturbance, severe Current Visit: Yes Status: Acute (2) MDD (major depressive disorder) Current Visit: Yes Status: Acute Treatment Plan Continue current medications Patient will be admitted for inpatient psychiatric evaluation, medication adjustment and close monitoring The patient's behavior, mood, sleep and appetite will be closely monitored. Patient will be enrolled in individual and group therapeutic sessions and encouraged to attend. Patient will be provided with a safe and structured environment. Patient's physical health needs will be addressed by the Hospitalist. Hospitalist Consulted Labs including CBC, CMP, Lipid profile and Hemoglobin A1C ordered Social Assessment will be completed and the Regulatory Affairs Portfolio Leader will work with patient and family to ensure a suitable and safe disposition Medication adjustment will be made as clinically indicated Usual Wellness Anglican/Preservation: - Start Trazodone 50 mg po QHS & 50 mg po QHS PRN between 10 PM & 2 AM for insomnia - Start Melatonin 5 mg po QHS to promote circadian rhythm - Start [place]-3 for brain health, reduce impulsivity, and as adjunctive treatment for mood disorder, continue upon discharge given overall benefits. - Start B1 prophylaxis with 200 mg po for 5 days The patient agreed on the treatment plan, understood the risk, benefit, alternative treatment, potential consequence of no treatment, and gave informed consent. Initial Certification This is an acknowledgement statement that LIZZY MOORE is a 80 year old Male who requires inpatient psychiatric admission for treatment which could reasonably be expected to improve the patient's condition for HIS MENTAL HEALTH Estimated period of time patient will need to remain in the hospital: [1] Plan for post-hospital care: [Outpt] Assessment and Plan - Patient Problems (1) Major neurocognitive disorder, due to another medical condition, with behavioral disturbance, severe Current Visit: Yes Status: Acute (2) MDD (major depressive disorder) Current Visit: Yes Status: Acute Medications and Allergies Allergies Allergy/AdvReac Type Severity Reaction Status Date / Time No Known Allergies Allergy Verified 02/18/20 10:53 Home Medications Medication Instructions Recorded Confirmed Last Taken Type cephALEXin [Keflex] 500 mg PO Q12HR #14 cap 02/18/20 02/20/20 Unknown Rx Potassium Chloride 20 meq PO BID #30 packet 02/20/20 02/20/20 Unknown Rx ARIPiprazole [Aripiprazole] 10 mg PO DAILY 02/21/20 02/21/20 Unknown History Acetaminophen/Codeine [Tylenol 1 tab PO Q4H PRN 02/21/20 02/21/20 Unknown History /Codeine # 3 tab] Cyclobenzaprine [Flexeril 10 MG 5 mg PO Q8H PRN 02/21/20 02/21/20 Unknown History TAB] Escitalopram [Lexapro] 10 mg PO DAILY 02/21/20 02/21/20 Unknown History Losartan Potassium 100 mg PO DAILY 02/21/20 02/21/20 Unknown History Meloxicam 15 mg PO DAILY 02/21/20 02/21/20 Unknown History Metoprolol [Lopressor TAB] 50 mg PO BID 02/21/20 02/21/20 Unknown History PARoxetine [Paxil] 20 mg PO QHS 02/21/20 02/21/20 Unknown History Warfarin Sodium 4 mg PO DAILY 02/21/20 02/21/20 Unknown History buPROPion HCL [Bupropion HCl Sr] 150 mg PO DAILY 02/21/20 02/21/20 Unknown H istory hydroCHLOROthiazide 12.5 mg PO DAILY 02/21/20 02/21/20 Unknown History [Hydrochlorothiazide] Active Meds: Active Medications Amlodipine Besylate (Amlodipine) 5 mg PO QDAY [facility] Last Admin: 02/27/20 10:18 Dose: 5 mg Documented by: Apixaban (Eliquis) 2.5 mg PO Q12HR [facility]; Protocol Last Admin: 02/27/20 21:27 Dose: 2.5 mg Documented by: Aripiprazole (Aripiprazole) 5 mg PO QDAY [facility] Last Admin: 02/27/20 10:18 Dose: 5 mg Documented by: Escitalopram Oxalate (Lexapro) 5 mg PO QDAY [facility] Last Admin: 02/27/20 10:17 Dose: 5 mg Documented by: Melatonin (Melatonin) 5 mg PO QHS PRN PRN Reason: Sleep Last Admin: 02/27/20 21:28 Dose: 5 mg Documented by: Trazodone HCl (Desyrel) 50 mg PO QHS [facility] Last Admin: 02/27/20 21:27 Dose: 50 mg Documented by: Ziprasidone (Geodon) 10 mg IM Q6H PRN PRN Reason: Agitation Results - Results Labs/Vitals: Laboratory Last Values WBC 6.9 K/mm3 (4.5-11.0) 02/21/20 09:41 RBC 4.40 M/mm3 (3.65-5.03) 02/21/20 09:41 Hgb 13.9 gm/dl (11.8-15.2) 02/21/20 09:41 Hct 38.1 % (35.5-45.6) 02/21/20 09:41 MCV 87 fl (84-94) 02/21/20 09:41 MCH 32 pg (28-32) 02/21/20 09:41 MCHC 37 % (32-34) H 02/21/20 09:41 RDW 13.9 % (13.2-15.2) 02/21/20 09:41 Plt Count 239 K/mm3 (140-440) 02/21/20 09:41 Lymph % (Auto) 18.8 % (13.4-35.0) 02/21/20 09:41 [place] % (Auto) 7.1 % (0.0-7.3) 02/21/20 09:41 Eos % (Auto) 0.4 % (0.0-4.3) 02/21/20 09:41 Baso % (Auto) 0.6 % (0.0-1.8) 02/21/20 09:41 Lymph # 1.3 K/mm3 (1.2-5.4) 02/21/20 09:41 [place] # 0.5 K/mm3 (0.0-0.8) 02/21/20 09:41 Eos # 0.0 K/mm3 (0.0-0.4) 02/21/20 09:41 Baso # 0.0 K/mm3 (0.0-0.1) 02/21/20 09:41 Seg Neutrophils % 73.1 % (40.0-70.0) H 02/21/20 09:41 Seg Neutrophils # 5.0 K/mm3 (1.8-7.7) 02/21/20 09:41 PT 14.7 Sec. (12.2-14.9) 02/28/20 05:35 INR 1.17 (0.87-1.13) H 02/28/20 05:35 Sodium 143 mmol/L (137-145) 02/21/20 09:41 Potassium 3.8 mmol/L (3.6-5.0) 02/21/20 09:41 Chloride 101.9 mmol/L (98-107) 02/21/20 09:41 Carbon Dioxide 29 mmol/L (22-30) 02/21/20 09:41 Anion Gap 16 mmol/L 02/21/20 09:41 BUN 17 mg/dL (9-20) 02/21/20 09:41 Creatinine 0.6 mg/dL (0.8-1.5) L 02/21/20 09:41 Estimated GFR > 60 ml/min 02/21/20 09:41 BUN/Creatinine Ratio 28 % 02/21/20 09:41 Glucose 129 mg/dL (75-100) H 02/21/20 09:41 POC Glucose 116 (70-105) H 02/21/20 07:08 Hemoglobin A1c 5.6 % (4-6) 02/21/20 09:41 Calcium 9.0 mg/dL (8.4-10.2) 02/21/20 09:41 Total Bilirubin 1.60 mg/dL (0.1-1.2) H 02/21/20 09:41 AST 41 units/L (5-40) H 02/21/20 09:41 ALT 23 units/L (7-56) 02/21/20 09:41 Alkaline Phosphatase 75 units/L (35-129) 02/21/20 09:41 Total Protein 5.9 g/dL (6.3-8.2) L 02/21/20 09:41 Albumin 3.4 g/dL (3.9-5) L 02/21/20 09:41 Albumin/Globulin Ratio 1.4 % 02/21/20 09:41 Triglycerides 100 mg/dL (2-149) 02/21/20 09:41 Cholesterol 122 mg/dL (50-199) 02/21/20 09:41 LDL Cholesterol Direct 74 mg/dL (50-130) 02/21/20 09:41 HDL Cholesterol 35 mg/dL (40-59) L 02/21/20 09:41 Cholesterol/HDL Ratio 3.48 % 02/21/20 09:41 TSH 2.440 mlU/mL (0.270-4.200) 02/21/20 09:41 Last Vital Signs Temp 98.0 F 02/27/20 20:14 Pulse 84 02/27/20 20:14 Resp 18 02/27/20 20:14 BP 131/77 02/27/20 20:14 Pulse Ox 98 02/27/20 20:14
[2020-02-28] MEDS: APIXABAN 2.5 MG TAB PO SCH ×2 (11:16→21:39)
[2020-02-28] MEDS: ARIPiprazole 5 MG TAB PO SCH (11:17)
[2020-02-28] MEDS: ESCITALOPRAM 10 MG TAB PO SCH (11:17)
[2020-02-28] MEDS: amLODIPine 5 MG TAB PO SCH (11:18)
--- NOTE | 2020-02-28 15:13 | XRay Report ---
CHEST 1 VIEW 02/28/2020 2:02 PM INDICATION / CLINICAL INFORMATION: tb check protocol. COMPARISON: None available. FINDINGS: SUPPORT DEVICES: None. HEART / MEDIASTINUM: No significant abnormality. LUNGS / PLEURA: No significant pulmonary or pleural abnormality. No pneumothorax. ADDITIONAL FINDINGS: No significant additional findings. IMPRESSION: 1. No acute findings. Signer Name: Maximus Edwards MD Signed: 02/28/2020 3:09 PM Workstation Name: [id number]
[2020-02-28] MEDS: traZODone 50 MG TAB PO SCH (21:39)
[2020-02-29 08:02] LABS: INR 1.15 (0.87-1.13)
--- NOTE | 2020-02-29 09:28 | Discharge Summary ---
Providers - Providers Date of Admission: 02/20/20 10:33 Date of discharge: 02/29/20 Attending physician: JOSE CURRAN MD 02/20/20 09:53 Consult to Physician [CONS] Routine Comment: Consulting Provider: JAKY MCCAULEY Physician Instructions: Reason For Exam: manage medical conditions 02/20/20 13:35 Consult to Dietitian/Nutrition [CONS] Stat Physician Instructions: Reason For Exam: Reason for Consult: Poor oral intake 02/20/20 18:43 Physical Therapy Evaluation and Treat [CONS] Stat Comment: Reason For Exam: assess mobility 02/21/20 08:00 Consult to Wound/ET Nurse [CONS] Routine Reason For Exam: wound eval [facility] Reason for admission: depression, SI Admitting Diagnosis: F33.9 - MAJOR DEPRESSIVE DISORDER, RECURRENT, UNSPECIFIED Hospital course: The patient was provided inpatient psychiatric treatment with safe and supporti ve care, medication adjustment, adverse effect monitoring, medical evaluations, medical treatments, assessment and psycho-education. The patient's mood, cognition, behavior, moral support are improved and stabilized. St the time of discharge, the patient had no endangering behavior and no debilitating adverse effects. The patient agreed on potential consequences of no treatment and gave informed consent. Disposition: DC- TO HOME OR SELFCARE Time spent for discharge: 38 Allergies/Adverse Reactions: Allergies No Known Allergies Allergy (Verified 02/18/20 10:53) Vital Signs: Last Vital Signs Temp 98.1 F 02/28/20 19:07 Pulse 90 02/28/20 19:07 Resp 18 02/28/20 19:07 BP 143/83 02/28/20 19:07 Pulse Ox 97 02/28/20 19:07 Last Lab: Laboratory Last Values WBC 6.9 K/mm3 (4.5-11.0) 02/21/20 09:41 RBC 4.40 M/mm3 (3.65-5.03) 02/21/20 09:41 Hgb 13.9 gm/dl (11.8-15.2) 02/21/20 09:41 Hct 38.1 % (35.5-45.6) 02/21/20 09:41 MCV 87 fl (84-94) 02/21/20 09:41 MCH 32 pg (28-32) 02/21/20 09:41 MCHC 37 % (32-34) H 02/21/20 09:41 RDW 13.9 % (13.2-15.2) 02/21/20 09:41 Plt Count 239 K/mm3 (140-440) 02/21/20 09:41 Lymph % (Auto) 18.8 % (13.4-35.0) 02/21/20 09:41 [place] % (Auto) 7.1 % (0.0-7.3) 02/21/20 09:41 Eos % (Auto) 0.4 % (0.0-4.3) 02/21/20 09:41 Baso % (Auto) 0.6 % (0.0-1.8) 02/21/20 09:41 Lymph # 1.3 K/mm3 (1.2-5.4) 02/21/20 09:41 [place] # 0.5 K/mm3 (0.0-0.8) 02/21/20 09:41 Eos # 0.0 K/mm3 (0.0-0.4) 02/21/20 09:41 Baso # 0.0 K/mm3 (0.0-0.1) 02/21/20 09:41 Seg Neutrophils % 73.1 % (40.0-70.0) H 02/21/20 09:41 Seg Neutrophils # 5.0 K/mm3 (1.8-7.7) 02/21/20 09:41 PT 14.8 Sec. (12.2-14.9) 02/29/20 05:22 INR 1.15 (0.87-1.13) H 02/29/20 05:22 Sodium 143 mmol/L (137-145) 02/21/20 09:41 Potassium 3.8 mmol/L (3.6-5.0) 02/21/20 09:41 Chloride 101.9 mmol/L (98-107) 02/21/20 09:41 Carbon Dioxide 29 mmol/L (22-30) 02/21/20 09:41 Anion Gap 16 mmol/L 02/21/20 09:41 BUN 17 mg/dL (9-20) 02/21/20 09:41 Creatinine 0.6 mg/dL (0.8-1.5) L 02/21/20 09:41 Estimated GFR > 60 ml/min 02/21/20 09:41 BUN/Creatinine Ratio 28 % 02/21/20 09:41 Glucose 129 mg/dL (75-100) H 02/21/20 09:41 POC Glucose 116 (70-105) H 02/21/20 07:08 Hemoglobin A1c 5.6 % (4-6) 02/21/20 09:41 Calcium 9.0 mg/dL (8.4-10.2) 02/21/20 09:41 Total Bilirubin 1.60 mg/dL (0.1-1.2) H 02/21/20 09:41 AST 41 units/L (5-40) H 02/21/20 09:41 ALT 23 units/L (7-56) 02/21/20 09:41 Alkaline Phosphatase 75 units/L (35-129) 02/21/20 09:41 Total Protein 5.9 g/dL (6.3-8.2) L 02/21/20 09:41 Albumin 3.4 g/dL (3.9-5) L 02/21/20 09:41 Albumin/Globulin Ratio 1.4 % 02/21/20 09:41 Triglycerides 100 mg/dL (2-149) 02/21/20 09:41 Cholesterol 122 mg/dL (50-199) 02/21/20 09:41 LDL Cholesterol Direct 74 mg/dL (50-130) 02/21/20 09:41 HDL Cholesterol 35 mg/dL (40-59) L 02/21/20 09:41 Cholesterol/HDL Ratio 3.48 % 02/21/20 09:41 TSH 2.440 mlU/mL (0.270-4.200) 02/21/20 09:41 Core Measure Documentation - Palliative Care Palliative Care/ Comfort Measures: Not Applicable - Core Measures Any of the following diagnoses?: none Exam - Constitutional Vitals: Temp Pulse Resp BP Pulse Ox 98.1 F 90 18 143/83 97 02/28/20 19:07 02/28/20 19:07 02/28/20 19:07 02/28/20 19:07 02/28/20 19:07 General appearance: Present: no acute distress - EENT Eyes: Present: PERRL, EOM intact ENT: hearing intact, clear oral mucosa - Neck Neck: Present: supple, normal ROM - Respiratory Respiratory effort: normal Plan Activity: advance as tolerated Weight Bearing Status: Weight Bear as Tolerated Care Plan Goals: maintain good and stable mental health Plan of Treatment: The patient should be compliant with medications, not to use drugs, and not to drink alcohol. The patient understands that if suicidal ideas, homicidal ideas or any endangering feeling arise, the patient should seek assistance including, but not limited to crisis hotline, and emergency room. Health Concerns: Afib, HTN Follow up with: NICOLLE DOS SANTOSMAUK MD LYN [Primary Care Provider] - 7 Days Prescriptions: traZODone [Desyrel] 50 mg PO QHS #30 tablet amLODIPine 5 mg PO QDAY #30 tablet ARIPiprazole [Aripiprazole] 10 mg PO DAILY #60 buPROPion HCL [Bupropion HCl Sr] 150 mg PO DAILY #30 Apixaban [Eliquis] 2.5 mg PO Q12HR #60 tablet Escitalopram [Lexapro] 10 mg PO DAILY #30
[2020-02-29 10:04] VITALS: BP 114/67
[2020-02-29] MEDS: ARIPiprazole 5 MG TAB PO SCH (10:04)
[2020-02-29] MEDS: ESCITALOPRAM 10 MG TAB PO SCH (10:04)
[2020-02-29] MEDS: APIXABAN 2.5 MG TAB PO SCH (10:05)
[2020-02-29] MEDS: amLODIPine 5 MG TAB PO SCH (10:05)
== END 2020-02-29 12:06 | disposition home or self-care (01) | DRG 885 ==
LOC: 3A 09:38 → UNDOADMIN 09:38 → 5A 10:33
PROVIDERS: ADMIT Psychiatry & Neurology Psychiatry; ATTEND Psychiatry & Neurology Psychiatry
DX: F33.3 Major depressive disorder, recurrent, severe with psychotic symptoms (principal); U07.1 COVID-19; I48.20 Chronic atrial fibrillation, unspecified; I10 Essential (primary) hypertension; F03.90 Unspecified dementia, unspecified severity, without behavioral disturbance, psychotic disturbance, mood disturbance, and anxiety; F41.9 Anxiety disorder, unspecified; Z79.899 Other long term (current) drug therapy; Z91.14 Patient's other noncompliance with medication regimen; Z74.01 Bed confinement status; Z82.49 Family history of ischemic heart disease and other diseases of the circulatory system
CPT/HCPCS: 36415; 70450; 71045; 80053; 80061; 80307; 80320; 81001; 82140; 82962; 83036; 84443; 85025; 85610; 96372; G0378; G0480; J2270; U0003-CS